=== PATIENT | male | born 1935 | race Caucasian/White ===

== ENCOUNTER 2016-10-08 13:59 | Emergency (ER) | payer MEDICARE ==
[2010-09-25 18:28] VITALS: BMI 27.2
== END 2016-10-08 15:51 | disposition home or self-care (01) ==
LOC: D.ER 13:59
DX: R51 Headache (principal); S09.90XA Unspecified injury of head, initial encounter; W19.XXXA Unspecified fall, initial encounter; Y93.89 Activity, other specified; Y92.019 Unspecified place in single-family (private) house as the place of occurrence of the external cause; Z79.01 Long term (current) use of anticoagulants; E11.9 Type 2 diabetes mellitus without complications; Z79.4 Long term (current) use of insulin

== ENCOUNTER 2017-03-18 17:34 | Inpatient (IN) | payer MEDICARE ==
[2017-03-18 19:01] LABS: BASOPHILS 0.2 % (0-2); EOSINOPHILS 0.5 % (0-7); HEMATOCRIT 32.1 % (42.0-54.0); HEMOGLOBIN 10.7 g/dL (13.5-17.5); IMMATURE GRANULOCYTES 0.8 % (0-5); MCH 28.6 pg (26.0-34.0); MCHC 33.3 g/dL (31.0-37.0); MCV 85.8 fL (80.0-100.0); MEAN PLATELET VOLUME 11.2 fL (7.4-10.4); MONOCYTES 11.6 % (2-11); NEUTROPHILS 80.9 % (40-80); PLATELET COUNT 140 10x3/uL (130-400); RBC 3.74 10x6/uL (4.20-6.10); RDW 14.6 % (11.5-14.5); WBC 11.3 10x3/uL (4.8-10.8)
[2017-03-18 19:19] LABS: ALBUMIN 3.6 g/dL (3.4-5.0); ALKALINE PHOSPHATASE 84 U/L (46-116); ALT (SGPT) 88 U/L (10-68); BILIRUBIN - TOTAL 1.08 mg/dL (0.2-1.3); CALC OSMOLALITY 284 mosm/kg (275-300); CALCIUM 8.5 mg/dL (8.5-10.1); CARBON DIOXIDE 26.4 mmol/L (21.0-32.0); CHLORIDE - SERUM 103 mmol/L (98-107); CREATININE - SERUM 1.4 mg/dL (0.6-1.3); GLUCOSE 108 mg/dL (74-106); POTASSIUM - SERUM 3.5 mmol/L (3.5-5.1); PROTEIN - SERUM 6.3 g/dL (6.4-8.2); SODIUM 137 mmol/L (136-145); UREA NITROGEN 41 mg/dL (7-18); eGFR NON AFRICAN AMERICAN 52 mL/min (90-120)
[2017-03-18 19:44] LABS: CREATINE KINASE 310 UL (21-232); TROPONIN-I 0.032 ng/mL (0.000-0.060)
[2017-03-18 20:11] LABS: PRO BNP 5767 pg/mL (0-450)
[2017-03-18 20:32] LABS: CKMB 8.3 U/L (0.0-3.6)
[2017-03-18 21:48] LABS: TROPONIN-I 0.017 ng/mL (0.000-0.060)
--- NOTE | 2017-03-19 00:44 | NUR ---
PT ENTERED FLOOR AT THIS TIME. PT IS VERY LETHARGIC AND SLOW TO RESPOND. WILL CONTINUE TO MONITOR
[2017-03-19 01:53] VITALS: BP 169/113
--- NOTE | 2017-03-19 02:21 | NUR ---
PT LYING IN BED, EYES CLOSED, RESPIRATIONS EVEN, MILDLY LABORED. PT IS UNROUSABLE AT THIS TIME. PT WAS D/C FROM THE [facility] 03/17/17 R/T FALLING AT HOME, HITTING HIS HEAD AND INJURING HIS RLE. PHYSICAL ADMISSION ASSESSMENT IS LIMITED AT THIS TIME R/T PT BEING UNRESPONSIVE. WILL CONTINUE TO MONITOR PT CLOSELY AND FREQUENTLY. BED LOW, CALL LIGHT IN REACH, SIDE RAILS X 2, HOB 20 DEGREES, BED ALARM ON. BEDSCALE DOES NOT WORK AT THIS TIME.
[2017-03-19 03:00] LABS: BASOPHILS 0.3 % (0-2); EOSINOPHILS 0.8 % (0-7); HEMATOCRIT 32.6 % (42.0-54.0); HEMOGLOBIN 10.6 g/dL (13.5-17.5); LYMPHOCYTES 8.5 % (15-50); MCH 27.7 pg (26.0-34.0); MCHC 32.5 g/dL (31.0-37.0); MCV 85.3 fL (80.0-100.0); MEAN PLATELET VOLUME 10.6 fL (7.4-10.4); MONOCYTES 10.8 % (2-11); NEUTROPHILS 78.6 % (40-80); PLATELET COUNT 135 10x3/uL (130-400); RBC 3.82 10x6/uL (4.20-6.10); RDW 14.6 % (11.5-14.5)
[2017-03-19 03:25] LABS: CALC OSMOLALITY 291 mosm/kg (275-300); CALCIUM 8.7 mg/dL (8.5-10.1); CARBON DIOXIDE 30.3 mmol/L (21.0-32.0); CHLORIDE - SERUM 104 mmol/L (98-107); CKMB 6.7 U/L (0.0-3.6); CREATININE - SERUM 1.4 mg/dL (0.6-1.3); GLUCOSE 98 mg/dL (74-106); POTASSIUM - SERUM 3.2 mmol/L (3.5-5.1); SODIUM 142 mmol/L (136-145); TROPONIN-I 0.027 ng/mL (0.000-0.060); UREA NITROGEN 39 mg/dL (7-18); eGFR NON AFRICAN AMERICAN 52 mL/min (90-120)
[2017-03-19 03:26] LABS: CREATINE KINASE 524 UL (21-232)
--- NOTE | 2017-03-19 07:56 | NUR ---
AM ROUNDS - PT IS IN BED AND ASLEEP AT THIS TIME. MONITOR SHOWING CAF, HR 109. BARNETT DRAINING. PT IS ON 2L O2 VIA NC. IV TO RIGHT WRIST, SL. BED AT LOWEST POSITION. CALL KIRK IN USE/REACH. SIDE RAILS UP X2. WILL COTNINUE TO MONITOR
[2017-03-19 08:15] VITALS: BP 140/94
[2017-03-19 09:38] LABS: CKMB 4.3 U/L (0.0-3.6); CREATINE KINASE 156 UL (21-232); TROPONIN-I 0.024 ng/mL (0.000-0.060)
--- NOTE | 2017-03-19 11:04 | NUR ---
[facility] IS A [facility]. SPOKE WITH PATIENT ABOUT [facility]. HE STATED THAT HE JUST SPENT 9 DAYS THERE AND THEY DISCHARGED HIM AFTER CUTTING HIS LASIX OFF COMPLETELY. HE STATED THAT HE HAD DEVELOPED SOB BEFORE THEY EVEN SENT HIM HOME AND THEY TOLD HIM THERE WAS NOTHING ELSE THEY COULD DO FOR HIM AND HIS SON AND [id number] BROUGHT HIM HERE. HE STATED THAT HE DOES NOT WANT TO GO BACK TO THE [facility]. EXPLAINED THAT BY REFUSING WE WOULD HAVE TO BILL HIS HUMANA, THAT THE [facility] WOULD NOT PAY THE BILL. HE STATED HIS UNDERSTANDING AND SAID THAT WAS FINE. CALL WAS PLACED TO THE BILLING OFFICE AND THIS WAS EXPLAINED TO BOTH GURINDER AND AMY.
[2017-03-19 12:04] VITALS: BP 140/86
[2017-03-19 14:03] VITALS: BMI 29.9
[2017-03-19] MEDS ORDERED: ACETAMINOPHEN325 MG PO (14:42)
[2017-03-19] MEDS ORDERED: BAYER CHEWABLE81 MG PO (14:43)
[2017-03-19] MEDS ORDERED: OPTIVE SENSITI1 EACH EACH EYE (14:44)
[2017-03-19] MEDS ORDERED: VITAMIN D2000 UNIT PO (14:44)
[2017-03-19] MEDS ORDERED: LEXAPRO10 MG PO (14:44)
[2017-03-19] MEDS ORDERED: PROSCAR5 MG PO (14:45)
[2017-03-19] MEDS ORDERED: EUCERIN CREAM120 GM TOPICAL (14:46)
[2017-03-19] MEDS ORDERED: ENULOSE10 G/15 ML PO (14:47)
[2017-03-19] MEDS ORDERED: PRINIVIL20 MG PO (14:48)
[2017-03-19] MEDS ORDERED: ATIVAN0.5 MG PO (14:49)
[2017-03-19] MEDS ORDERED: OMEPRAZOLE20 M1 PO (14:49)
[2017-03-19] MEDS ORDERED: METOPROLOL TAR100 M1 PO (14:49)
[2017-03-19] MEDS ORDERED: MEPHYTON5 MG PO (14:50)
[2017-03-19] MEDS ORDERED: GAVILAX510 GM PO (14:51)
[2017-03-19] MEDS ORDERED: LYRICA150 MG PO (14:52)
[2017-03-19] MEDS ORDERED: CRESTOR20 MG PO (14:53)
[2017-03-19] MEDS ORDERED: COUMADIN5 MG PO (14:54)
[2017-03-19] MEDS ORDERED: GAS-X80 MG PO (14:54)
[2017-03-19] MEDS ORDERED: COUMADIN2.5 MG PO (14:55)
--- NOTE | 2017-03-19 15:31 | NUR ---
NYSTOP POWER NOT AVAILABLE. PHARMACY NOTIFIED. WAITING ON MEDICATION
--- NOTE | 2017-03-19 15:32 | NUR ---
SCD PLACED ON PT. WILL CONTINUE TO MONITOR
[2017-03-19] MEDS ORDERED: LANTUS SOL100 UNIT/1 SC (16:35)
[2017-03-19 16:54] VITALS: BP 126/79
[2017-03-19 16:58] LABS: INR 2.5 (0.85-1.17); PROTIME 27.1 SECONDS (11.6-15.0)
--- NOTE | 2017-03-19 17:05 | NUR ---
PT CURRENTLY RUNNING 129 UNCONTROLLED A.FIB. CARDIZEM DRIP ORDERED AND INTIATED VIA R.WRIST PIV WITH DRSG CDI AND SWAB CAPS IN USE. DRIP INFUSING @10ML/HR, TEACHING PROVIDED TO PT AND CAREGIVER AT BEDSIDE IT IS A NEW MEDICATION. CL IN REACH, BED IN LOWEST, SIDE RAILS X2. NO FURTHER NEEDS AT THIS TIME. WILL CPOC.
[2017-03-19 17:22] LABS: % SATURATION 12 % (15-55); IRON 33 ug/dl (35-150); TOTAL IRON BIND CAPACITY 274 ug/dl (260-445); UNSAT IRON BIND CAPACITY 241 ug/dl (150-375)
--- NOTE | 2017-03-19 18:29 | NUR ---
PT IN BED WITH FAMILY AT BEDSIDE. WILL CONTINUE TO MONITOR
[2017-03-19 19:00] VITALS: BP 121/76
--- NOTE | 2017-03-19 19:36 | NUR ---
ASSESSMENT COMPLETE, A&O. IV TO RIGHT WRIST WITH CARDIZEM AT 10 CC/HR. SITE CLEAN AND DRY. BARNETT DRAINING TO GRAVITY. SCDS ON LOWER EXTREMITIES. PT DENIES NEEDS AT THIS TIME, BED LOW, CL IN REACH.
[2017-03-19] MEDS ORDERED: TYLENOL W/CODEI1 TAB PO (20:44)
[2017-03-20] VITALS (9 sets, daily range): BP systolic 93–128; BP diastolic 52–67
--- NOTE | 2017-03-20 00:55 | NUR ---
TALENT PARTNER AT BEDSIDE TO OBTAIN VITALS, CALL LIGHT IN REACH. WILL CONTINUE WITH PLAN OF CARE.
[2017-03-20 05:04] LABS: BASOPHILS 0.2 % (0-2); EOSINOPHILS 0.8 % (0-7); HEMATOCRIT 33.1 % (42.0-54.0); HEMOGLOBIN 10.8 g/dL (13.5-17.5); LYMPHOCYTES 8.1 % (15-50); MCH 28.3 pg (26.0-34.0); MCHC 32.6 g/dL (31.0-37.0); MCV 86.6 fL (80.0-100.0); MEAN PLATELET VOLUME 10.9 fL (7.4-10.4); MONOCYTES 12.8 % (2-11); NEUTROPHILS 77.1 % (40-80); RBC 3.82 10x6/uL (4.20-6.10); RDW 14.5 % (11.5-14.5)
--- NOTE | 2017-03-20 05:09 | NUR ---
RESTING WITH EYES CLOSED, RESPERATIONS EVEN, NO S/S DISTRESS NOTED.
[2017-03-20 05:27] LABS: INR 2.22 (0.85-1.17); PROTIME 24.7 SECONDS (11.6-15.0)
[2017-03-20 05:33] LABS: ALBUMIN 3.3 g/dL (3.4-5.0); ANION GAP 9.5 mmol/L (8-16); BILIRUBIN - TOTAL 0.9 mg/dL (0.2-1.3); CALCIUM 8.5 mg/dL (8.5-10.1); CARBON DIOXIDE 32.9 mmol/L (21.0-32.0); POTASSIUM - SERUM 3.4 mmol/L (3.5-5.1); PROTEIN - SERUM 6.2 g/dL (6.4-8.2)
[2017-03-20 05:35] LABS: PLATELET COUNT 166 10x3/uL (130-400); WBC 10.5 10x3/uL (4.8-10.8)
[2017-03-20 05:52] LABS: CREATININE - SERUM 1.9 mg/dL (0.6-1.3)
--- NOTE | 2017-03-20 15:03 | NUR ---
1030- HUMIDIFIED O2 PLACED ON PT DUE TO PT STATING HE FEELS LIKE HIS NOSE IS GOING TO BLEED. PT IS ON 02 AT 2L VIA NC.
--- NOTE | 2017-03-20 16:35 | NUR ---
FAVIOLA AKERS IS GETTING ORTHOSTATIC BLOOD PRESSURES DIRECTED IN NURSING MESSAGE.
--- NOTE | 2017-03-20 18:41 | NUR ---
PT IS CURRENTLY SITTING UP IN BED WITH EYES OPEN RESTING. I INFORMED PT THAT PARIS CORDERO NP ORDERED A MEDICATION TO HELP PT SLEEP REQUESTED. WILL PASS THIS ALONG IN REPORT TO FRONT MAKER NURSE. WILL CONTINUE TO MONITOR.
--- NOTE | 2017-03-20 19:22 | NUR ---
PT RESTING IN BED. 2.5L O2 NC. PT STATES PAIN IS ABOUT 4/10. IN RIGHT LEG. PT WATCHING FOOTBALL. TALKING ABOUT HIS PAST JOBS. PT DENIES ANY NEEDS. NO S/S OF DISTRESS. WILL CPOC
[2017-03-21] VITALS (7 sets, daily range): BP systolic 109–127; BP diastolic 67–93
[2017-03-21 05:55] LABS: BASOPHILS 0.5 % (0-2); EOSINOPHILS 2.5 % (0-7); HEMOGLOBIN 10.5 g/dL (13.5-17.5); LYMPHOCYTES 11.6 % (15-50); MCH 28.1 pg (26.0-34.0); MCHC 31.8 g/dL (31.0-37.0); MCV 88.2 fL (80.0-100.0); MEAN PLATELET VOLUME 10.5 fL (7.4-10.4); MONOCYTES 8.6 % (2-11); NEUTROPHILS 75.8 % (40-80); PLATELET COUNT 155 10x3/uL (130-400); RBC 3.74 10x6/uL (4.20-6.10); RDW 14.7 % (11.5-14.5); WBC 8.1 10x3/uL (4.8-10.8)
[2017-03-21 06:07] LABS: INR 2.26 (0.85-1.17)
[2017-03-21 06:20] LABS: ALBUMIN 3.1 g/dL (3.4-5.0); ANION GAP 8.7 mmol/L (8-16); BILIRUBIN - TOTAL 0.7 mg/dL (0.2-1.3); CALCIUM 8.2 mg/dL (8.5-10.1); CREATININE - SERUM 1.8 mg/dL (0.6-1.3); POTASSIUM - SERUM 3.7 mmol/L (3.5-5.1); PROTEIN - SERUM 6.1 g/dL (6.4-8.2)
--- NOTE | 2017-03-21 08:04 | NUR ---
AM ROUNDING- RECIEVED REPORT FROM RECYCLING COLLECTIONS DRIVER NURSE AKIRA. PT IS CURRENTLY SITTING UP IN BED WITH EYES OPEN RESTING. ON 02 AT 2L VIA HUMIDIFIED O2. ON MONITOR SHOWING A-FLUTTER, HR 100. IV SEEN TO RIGHT WRIST THAT IS CURRENTLY SALINE LOCKED. BARNETT CATHETER SEEN. NO NEED AT THIS CURRENT TIME. BED IS IN LOW POSITION, SIDE RAILS ARE UP X2, AND CALL LIGHT IS IN REACH. WILL CONTINUE TO MONITOR AND CONTINUE WITH PLAN OF CARE.
--- NOTE | 2017-03-21 12:00 | NUR ---
Nutrition Follow Up: Pt is eating 90% meal avg on a [facility] soft diabetic diet with nectar thick liquids. Wt stable. No BM since admit. Labs reviewed - Glucose elevated. Meds noted including Lasix. Rec continue current diet. RD following.
--- NOTE | 2017-03-21 17:07 | NUR ---
PARIS CORDERO NP ON UNIT. INFORMED HER THAT PT NEEDS A SUPPOSITORY FOR CONSTIPATION AND THAT I JUST GAVE PT MIRLAX. NEW ORDERS RECIEVED.
[2017-03-21 17:37] LABS: HEMOGLOBIN A1C 7.6 % (4.8-6.0)
--- NOTE | 2017-03-21 18:34 | NUR ---
PT GIVEN SUPPOSITORY ORDERED. PT INSTRUCTED TO HOLD SUPPOSITORY IN LONG HE CAN. NO FURTHER NEED AT THIS TIME. CALL LIGHT IS IN REACH. WILL CONTINUE TO MONITOR.
--- NOTE | 2017-03-21 19:40 | NUR ---
PT ON PHONE. NAME AND DATE PLACED ON BOARD. STATES "HE WANTS A SLEEPING PILL TONIGHT. NOT RIGHT NOW IN A COUPLE HOURS WHEN I BRING MEDS" PT ALSO ASKS ME TO BRING A PAIN PILL FOR PAIN 4/10 IN RIGHT LEG. PT IS ON 2L O2 NC WITH HUMIDITY, IV RIGHT WRIST. PT DENIES ANY NEEDS. NO S/S OF DISTRESS. WILL CPOC
--- NOTE | 2017-03-21 22:39 | NUR ---
PT ASLEEP IN BED. RESPIRATIONS EVEN AND UNLABORED. . O2 WAS PUSHED OUT OF NOSE ONTO FOREHEAD. WOKE PT UP. HE STATED HE FORGOT HE TOOK IT OUT HE WAS GETTING A SCAB OUT OF NOSE. PT AROUSED TO VOICE. PT NIKOLAI. PT RECEIVING PAIN PILL AND SCHEDULED PAIN PILL REQUESTED. ALSO GIVING GRAMCRACKERS, CUP OF ICE, AND MOUTH MOISTURIZER TO PT REQUESTED. PT DENIES ANY OTHER NEEDS. NO S/S OF DISTRESS. WILL CPOC
[2017-03-22] VITALS: BP 91/57
--- NOTE | 2017-03-22 | NUR ---
PT UP TO RESTROOM X1 ASSIST. STAT LOCK FOR FOLLEY IS NOT INTACT. REMOVED AND REPLACED STAT LOCK TO RIGHT INNER THIGH NOW CDI. PT DENIES ANY OTHER NEEDS. WILL CPOC
[2017-03-22 04:00] VITALS: BP 107/62
[2017-03-22 05:41] LABS: BASOPHILS 0.4 % (0-2); EOSINOPHILS 2.1 % (0-7); HEMATOCRIT 31.8 % (42.0-54.0); IMMATURE GRANULOCYTES 1.1 % (0-5); MCH 27.7 pg (26.0-34.0); MCHC 31.4 g/dL (31.0-37.0); MCV 88.1 fL (80.0-100.0); MEAN PLATELET VOLUME 11.1 fL (7.4-10.4); MONOCYTES 8.2 % (2-11); NEUTROPHILS 76.2 % (40-80); PLATELET COUNT 156 10x3/uL (130-400); RBC 3.61 10x6/uL (4.20-6.10); RDW 14.4 % (11.5-14.5); WBC 8.5 10x3/uL (4.8-10.8)
[2017-03-22 06:00] LABS: ALBUMIN 2.8 g/dL (3.4-5.0); ANION GAP 10.1 mmol/L (8-16); BILIRUBIN - TOTAL 0.59 mg/dL (0.2-1.3); CARBON DIOXIDE 32.7 mmol/L (21.0-32.0); CREATININE - SERUM 1.8 mg/dL (0.6-1.3); POTASSIUM - SERUM 3.8 mmol/L (3.5-5.1)
[2017-03-22 06:18] LABS: PROTIME 30.9 SECONDS (11.6-15.0)
[2017-03-22 06:19] LABS: INR 2.94 (0.85-1.17)
--- NOTE | 2017-03-22 06:52 | NUR ---
PT ASLEEP. LAYING ON LEFT SIDE. RESPIRATIONS EVEN AND UNLABORED. WILL CPOC
--- NOTE | 2017-03-22 08:00 | NUR ---
AM ROUNDS COMPLETED. PT A&O SITTING UP IN BED RESTING QUIETLY. SHIFT ASSESSMENT COMPLETED. RR NONLABORED WITH NC @2L IN PLACE. PT HAS A R.WRIST PIV WITH DRSG CDI AND SWAB CAPS IN USE. PT HAS BARNETT IN PLACE DRAINING TO GRAVITY OFF L.SIDE OF BED CLEAR YELLOW URINE WITH STAT LOCK IN PLACE SECURED TO L.INNER THIGH. PT REFUSES SCDS R/T HIS PVD AND STATES HIS FEET HURT. R.CALF HAS A SMALL HEMATOMA NOTED FROM HIS FALL AT HOME. PT DENIES ANY CURRENT NEEDS AT THIS TIME. CL IN REACH, BED IN LOWEST, SIDE RAILS X2. WILL CPOC.
[2017-03-22 08:45] VITALS: BP 131/81
--- NOTE | 2017-03-22 10:29 | NUR ---
PT PIV INFILTRATED DC WITH CATH TIP INTACT. RESITED TO LEFT WRIST 20 G X2 STICKS.
--- NOTE | 2017-03-22 12:09 | NUR ---
FSBS 332 PT REC'D 8 UNITS PER SS INSULIN. PTS COLOR IS PALE IN HIS FACE AND HES VERY LETHARGIC. VSS AND TELEMETRY RUNNING 110 FLUTTER. STAT EKG DONE AND REVEALS THE SAME. PTS BUILD TECHNICIAN ARE EQUAL AND STRONG. PERRLA INTACT. PT IS JUST REMARKEDLY TIRED/DIFFERENT FROM EARLIER THIS AM. PT IS ORIENTED X4 BUT HIS SPEECH IS SLURRED SLIGHT DROOP NOTED TO LEFT SIDE UPON SMILING ASSESSMENT PT UNABLE TO STICK TONGUE OUT AND KEEPS FALLING BACK ASLEEP. WILL NOTIFY PRIMARY STAT.
[2017-03-22 12:40] VITALS: BP 136/84
--- NOTE | 2017-03-22 14:00 | NUR ---
PT WENT AND HAD CT DONE AND NOW IS ACTING NORMAL AT HIS BASELINE STAYING AWAKE AND NOT ACTING LETHARGIC. PT STATES "I FEEL FINE I WAS JUST PRETTY TIRED" PT DENIES ANY CURRENT NEEDS. WILL CTM.
--- NOTE | 2017-03-22 16:11 | NUR ---
FSBS 231. PT REC'D 4 UNITS PER SS INSULIN. PT SITTING UP IN BED WATCHING TV WAITING ON DINNER. PT DENIES ANY CURRENT PAIN OR NEEDS AT THIS TIME. CL IN REACH, BED IN LOWEST, SIDE RAILS X2. WILL CPOC.
[2017-03-22 16:24] VITALS: BP 109/55
--- NOTE | 2017-03-22 19:24 | NUR ---
RECEIVED REPORT, WILL ASSUME CARE OF PT, PT RECEIVING BREATHING TREATMENT, DENIES ANY NEEDS, BED IS LOW, SRX2, CALL LIGHT IN REACH, WILL CONTINUE PLAN OF CARE
[2017-03-22 20:00] VITALS: BP 108/71
--- NOTE | 2017-03-22 21:12 | NUR ---
[id number] 6UNITS OF HUMALOG, PT WANTS TO WAIT TO TAKE DESERYL UNTIL LATER
--- NOTE | 2017-03-22 22:16 | NUR ---
ASSISTED PT TO RESTROOM, PT REFUSED TO PUT SOCKS ON
--- NOTE | 2017-03-22 22:40 | NUR ---
PT COMPLAINS OF LEG PAIN, ASKING FOR TYLENOL-CODIENE
[2017-03-23] VITALS: BP 126/77
[2017-03-23 02:08] VITALS: BP 125/65
--- NOTE | 2017-03-23 03:22 | NUR ---
ASSESSMENT COMPLETE, SEE FLOWSHEET, PT SLEEPING, BED IS LOW, SRX2, CALL LIGHT IN REACH, WILL CONTINUE PLAN OF CARE
[2017-03-23 04:00] VITALS: BP 136/70
--- NOTE | 2017-03-23 05:36 | NUR ---
PT HAS DONE WELL THIS NIGHT. HE TOOK HIS TRAMMADOL LATE AT HIS REQUEST. REFUSED TO WEAR NON SLIP SOCKS WHEN UP TO BATHROOM. STAFF ASSISTED AT ALL TIMES.
--- NOTE | 2017-03-23 06:32 | NUR ---
[id number] 2 UNITS OF HUMALOG
[2017-03-23 06:44] LABS: BASOPHILS 0.1 % (0-2); EOSINOPHILS 1.9 % (0-7); HEMATOCRIT 33.8 % (42.0-54.0); HEMOGLOBIN 10.7 g/dL (13.5-17.5); IMMATURE GRANULOCYTES 0.9 % (0-5); LYMPHOCYTES 11.8 % (15-50); MCH 27.7 pg (26.0-34.0); MCHC 31.7 g/dL (31.0-37.0); MCV 87.6 fL (80.0-100.0); MEAN PLATELET VOLUME 11.6 fL (7.4-10.4); MONOCYTES 7.9 % (2-11); NEUTROPHILS 77.4 % (40-80); PLATELET COUNT 176 10x3/uL (130-400); RBC 3.86 10x6/uL (4.20-6.10); RDW 14.3 % (11.5-14.5); WBC 7.7 10x3/uL (4.8-10.8)
[2017-03-23 06:56] LABS: PROTIME 25.5 SECONDS (11.6-15.0)
[2017-03-23 06:57] LABS: INR 2.31 (0.85-1.17)
[2017-03-23 07:16] LABS: ANION GAP 11.4 mmol/L (8-16); BILIRUBIN - TOTAL 0.71 mg/dL (0.2-1.3); CALCIUM 8.4 mg/dL (8.5-10.1); CARBON DIOXIDE 32.2 mmol/L (21.0-32.0); CREATININE - SERUM 1.6 mg/dL (0.6-1.3); POTASSIUM - SERUM 3.6 mmol/L (3.5-5.1); PROTEIN - SERUM 6.3 g/dL (6.4-8.2)
[2017-03-23 08:00] VITALS: BP 143/70
--- NOTE | 2017-03-23 08:00 | NUR ---
AM ROUNDS COMPLETED. INTRODUCED MYSELF TO PT PRIMARY RN FOR TODAYS SHIFT. PT A&O SITTING UP IN BED RESTING QUIETLY. SHIFT ASSESSMENT COMPLETED AND NO CHANGES SINCE YESTERDAYS ASSESSMENT ON MY SHIFT. PTS L.WRIST PIV IS PATENT WITH DRSG CDI AND SWAB CAPS IN USE. TELEMTRY IN PLACE RUNNING ATRIAL FLUTTER AT 118, WILL DISCUSS WITH CARDIOLOGY TODAY ABOUT UPPING PTS BETAPACE TO BE MORE EFFECTIVE. PTS BILAT LE UNCHANGED BUT I APPLIED ALOE SPRAY MOISTURE TO HELP KEEP THEM MOISTURIZED. BARNETT DRAINING CLEAR YELLOW URINE TO GRAVITY OFF R.SIDE OF BED. STAT LOCK SECURED TO INNER THIGH. NO FURTHER NEEDS AT THIS TIME. CL IN REACH, BED IN LOWEST, SIDE RAILS X2. WILL CPOC.
[2017-03-23 11:00] VITALS: BP 140/67
--- NOTE | 2017-03-23 12:12 | NUR ---
FSBS 312 PT REC'D 8 UNITS OF INSULIN PER SS. PT C/O DIETARY NOT CHOPPING UP HIS MEAT ENOUGH. PT IS ENDENTULOUS AND NEEDS CONSISTENCY OF A HASH, WILL CALL AND ORDER PT NEW TRAY FROM DIETARY. PT REC'D MIRALAX THIS AM FOR CONSTIPATION AND STILL HASNT WENT, ABDOMEN STILL DISTENDED AND TIGHT, WILL ASK DOCTOR FOR ADDITIONAL PRN MED IF HE STILL CANT GO. PT VOICED THANKS AND DENIES ANY FURTHER NEEDS AT THIS TIME. CL IN REACH, BED IN LOWEST, SIDE RAILS X2. WILL CPOC.
--- NOTE | 2017-03-23 14:00 | NUR ---
PT UP AMBULATING HALLS WITH PHYSICAL THERAPY PT DENIES BEING SOB OR WEAK AND STATES "IT FEELS GOOD TO BE OOB" PT DENIES ANY CURRENT NEEDS. WILL CPOC.
[2017-03-23 15:04] VITALS: BP 146/71
--- NOTE | 2017-03-23 16:46 | NUR ---
FSBS 207 PT REC'D 4 UNITS PER SS INSULIN. PT STILL HASNT HAD BM TODAY AND ABD VERY TIGHT AND DISTENDED PT STATES HE HAS BEEN PASSING LOTS OF GAS. PROVIDED PT WITH HIS MIRALAX THAT IS NOW SCHEDULED LIKE HE DOES AT HOME MIXED IN PRUNE JUICE AND PT STATES IT SHOULD HELP. PT DENIES ANY CURRENT PAIN OR NEEDS AT THIS TIME AND IS WATCHING TV WAITING ON DINNER. CL IN REACH. WILL CPOC.
--- NOTE | 2017-03-23 18:49 | NUR ---
PT CALLED FOR ASSISTANCE TO BR AND HAD VERY LARGE SOFT BROWN FORMED BOWEL MOVEMENT AND STATES MUCH RELIEF. EMTPIED BARNETT OF 1500ML OF CLEAR YELLOW URINE. ASSISTED PT BACK INTO BED. PT DENIES ANY FURTHER NEEDS AT THIS TIME. CL IN REACH. WILL CPOC.
--- NOTE | 2017-03-23 19:44 | NUR ---
RECEIVED REPORT, WILL ASSUME CARE OF PT, TALKING ON PHONE, DENIES ANY NEEDS,BED IS LOW, SRX2, CALL LIGHT IN REACH, WILL CONTINUE PLAN OF CARE
--- NOTE | 2017-03-23 21:15 | NUR ---
PT WANTS TO WAIT UNTIL LATER TO TAKE DESERYL
[2017-03-24] VITALS: BP 91/58
--- NOTE | 2017-03-24 00:45 | NUR ---
PT WANTS TRAZODONE NOW, WAS DUE AT 2100
--- NOTE | 2017-03-24 03:29 | NUR ---
ASSESSMENT COMPLETE, SEE FLOWSHEET, PT SLEEPING, BED IS LOW, SRX2, CALL LIGHT IN REACH, WILL CONTINUE PLAN OF CARE
[2017-03-24 04:00] VITALS: BP 115/62
[2017-03-24 05:43] LABS: BASOPHILS 0.1 % (0-2); HEMATOCRIT 31.6 % (42.0-54.0); IMMATURE GRANULOCYTES 1.3 % (0-5); LYMPHOCYTES 15.6 % (15-50); MCH 27.4 pg (26.0-34.0); MCHC 31.6 g/dL (31.0-37.0); MCV 86.6 fL (80.0-100.0); MONOCYTES 8.1 % (2-11); NEUTROPHILS 72.9 % (40-80); PLATELET COUNT 165 10x3/uL (130-400); RBC 3.65 10x6/uL (4.20-6.10); WBC 7.5 10x3/uL (4.8-10.8)
[2017-03-24 05:59] LABS: INR 2.25 (0.85-1.17); PROTIME 24.9 SECONDS (11.6-15.0)
[2017-03-24 06:14] LABS: ALBUMIN 2.9 g/dL (3.4-5.0); ANION GAP 11.5 mmol/L (8-16); BILIRUBIN - TOTAL 0.6 mg/dL (0.2-1.3); CARBON DIOXIDE 30.5 mmol/L (21.0-32.0); CREATININE - SERUM 1.8 mg/dL (0.6-1.3); PROTEIN - SERUM 5.8 g/dL (6.4-8.2)
[2017-03-24 06:38] LABS: CALCIUM 8.2 mg/dL (8.5-10.1)
[2017-03-24 08:00] VITALS: BP 109/65
--- NOTE | 2017-03-24 08:33 | NUR ---
AM ROUNDS COMPLETED. SHIFT ASSESSMENT DONE. NO CHANGES FROM YESTERDAY. PT IS A&O SITTING UP IN BED EATING BREAKFAST AND TAKING MORNING MEDS. ABDOMEN STILL DISTENDED AND TIGHT BUT PT IS NOW ON HOME REGIMEN OF MIRALAX AND STATES HE CAN FEEL IT WORKING. CURRENTLY WORKING ON GET PT SOME REHAB PT AMBULATED VERY WELL YESTERDAY WITH THERAPY AND IS MOTIVATED TO CONTINUE. PT WILL HAVE BARNETT REMOVED TODAY THERE IS NO FURTHER REASON FOR IT. WILL PROVIDED PT WITH URINAL. PT DENIES ANY CURRENT PAIN OR NEEDS AT THIS TIME. CL IN REACH. WILL CPOC.
--- NOTE | 2017-03-24 11:58 | NUR ---
Rehab Note- Acute Rehab Prescreen order received. The patient has [employer] insurance and will need a PreAuth prior to an acute rehab stay. Has an OT Eval ordered, will need for PreAuth also. Will begin PreAuth process. Thank you for this referral! Kat San RN Clinical Liaison, [facility] Rehab
[2017-03-24 12:00] VITALS: BP 106/53
--- NOTE | 2017-03-24 12:30 | NUR ---
FSBS 277 PT REC'D INSULIN PER SS. PT SITTING UP IN BED EATING LUNCH. PT DENIES ANY CURRENT PAIN OR NEEDS AT THIS TIME. WAITING ON REHAB CONSULT. CL IN REACH. WILL CPOC.
--- NOTE | 2017-03-24 12:59 | NUR ---
Nutrition Follow Up: Pt is eating 92% meal avg on a diabetic [facility] soft diet with nectar thick liquids. Wt gain noted. +BM 03/23/17. Labs reviewed - Glucose elevated. Meds noted including Lasix. Rec continue diabetic diet with PIPE CONNECTOR recs for consistencies. RD following.
--- NOTE | 2017-03-24 15:50 | NUR ---
EKG REVIEWED WITH , WILL CONTINUE PT ON CURRENT BETA MOUNA DOSE AND THERAPY AND CTM.
[2017-03-24 16:02] VITALS: BP 136/86
--- NOTE | 2017-03-24 16:41 | NUR ---
BARNETT CATHETER D/C ORDERED. BULB COMPLETELY INTACT, PT HAD SLIGHT DISCOMFORT BUT STATES IT FEELS BETTER NOW. FSBS 230 PT REC'D 4 UNITS PER SS INSULIN. PT SITTING UP IN BED TALKING WITH FAMILY NOW AND DENIES ANY FURTHER NEEDS AT THIS TIME. CL IN REACH, BED IN LOWEST, SIDE RAILS X2 AND URINAL AT BEDSIDE. WILL CPOC.
--- NOTE | 2017-03-24 17:32 | NUR ---
Patient Name: AMANDA MEJIA Admission Status: ER Accout number: [id number] Admission Date: 03-19-2017 : 1935 Admission Diagnosis:SHORTNESS OF BREATH Attending: CRISTINA Current LOS: 5 Anticipated DC Date: 03-25-2017 Planned Disposition: Inpatient Rehab Primary Insurance: [employer] CHOICE PPO MCR ADVANT PLANNED EXTERNAL PROVIDER: [facility] INPATIENT REHAB Discharge Planning Comments: * Is the patient Alert and Oriented? Yes 0 * How many steps to enter\\exit or inside your home? NONE 0 * PCP [facility] REPORTS HAVING SEEN DR. MARTINEZ IN THE PAST 0 * [facility] 0 * Preadmission Environment Home Alone 0 * ADLs Independent 0 * Equipment Bedside Commode Cane Shower Chair Walker Wheelchair 0 * Other Equipment [facility] - MEDICAL EQUIPMENT PROVIDER 0 * List name and contact numbers for known caregivers / representatives who currently or will assist patient after discharge: KARLA MEJIA, DAUGHTER IN LAW, 0 * Community resources currently utilized [facility] * Please name any agencies selected above. [facility] 1X MONTHLY - COMPANY NAME UNKNOWN 0 * Additional services required to return to the preadmission environment? Yes * Can the patient safely return to the preadmission environment? Yes 0 * Has this patient been hospitalized within the prior 30 days at any hospital? Yes 0 CM RECEIVED ORDER FOR INPATIENT REHAB PRESCREENING, MET WITH PT IN ROOM TO DISCUSS DISCHARGE PLANNING AND NEEDS. PT REPORTS LIVING AT HOME INDEPENDENTLY AND ALONE. PT REPORTS HAVING ALL MEDICAL EQUIPMENT FROM THE [facility] AND [facility] NURSE ONE TIME MONTHLY TO ASK HIM IS HE IS OK AND GET A BLOOD SAMPLE. CM DISCUSSED AVAILABILITY OF HOME HEALTH, REHAB SERVICES AND MEDICAL EQUIPMENT. PT WOULD LIKE TO BE EVALUATED FOR REHAB AT [facility], DOES NOT WANT TO CONSIDER [facility] INPATIENT HE IS "THROUGH WITH THEM OVER THERE SINCE MY ." PT REPORTS IF HE NEEDS HELP AT HOME, HIS SON AND DAUGHTER IN LAW LIVE NEXT DOOR AND CHECK ON HIM FREQUENTLY. PT WILL NOT CONSIDER GOING TO ANY SNF FACILITY IF INPATIENT REHAB OR INSURANCE DENIES SERVICE. SNF CHOICE LISTING PROVIDED TO PATIENT WITH CM CONTACT INFORMATION. PT REPORTS FAMILY WILL PICK HIM UP FOR DISCHARGE HOME. IMPORTANT MESSAGE FROM MEDICARE PROVIDED AND EXPLAINED. CM WAITING ON INPATIENT REHAB PRESCREEN RESULTS WELL INSURANCE AUTHORIZATION / DENIAL. Program Officer: Aldo Tompkins
[2017-03-24 19:00] VITALS: BP 105/50
--- NOTE | 2017-03-24 20:02 | NUR ---
RECEIVED REPORT, WILL ASSUME CARE OF PT, PT WATCHING TV, DENIES ANY NEEDS AT THIS TIME, BED IS LOW, SRX2, CALL LIGHT IN REACH, WILL CONTINUE PLAN OF CARE
--- NOTE | 2017-03-24 21:08 | NUR ---
WANTS TO WAIT TO TAKE DESERYL, WILL CALL WHEN READY
[2017-03-25] VITALS: BP 95/53
[2017-03-25 04:00] VITALS: BP 115/73
--- NOTE | 2017-03-25 04:05 | NUR ---
ASSESSMENT COMPLETE, SEE FLOWSHEET, BED IS LOW, SRX2, CALL LIGHT IN REACH, WILL CONTINUE PLAN OF CARE
--- NOTE | 2017-03-25 04:27 | NUR ---
BILINGUAL STUDENT TUTOR AT BEDSIDE TO OBTAIN VITALS, CALL LIGHT IN REACH. WILL CONTINUE WITH PLAN OF CARE.
--- NOTE | 2017-03-25 07:00 | NUR ---
RECEIVED REPORT. ASSUMED CARE OF PATIENT. RESTING IN BED WITH EYES OPEN. RESP EVEN AND UNLABORED. RIGHT LOWER EXTREMITY WARM TO TOUCH WITH ELEVATED AREA TO MEDIAL ASPECT OF CALF. NO DISTRESS. CALLL LIGHT WITHIN REACH.
[2017-03-25 08:00] VITALS: BP 121/65
--- NOTE | 2017-03-25 09:35 | NUR ---
MEDICATED FOR PAIN AT THIS TIME. NO DISTRESS. PATIENT SITTING UP IN BED. CALL LIGHT WITHIN REACH.
--- NOTE | 2017-03-25 11:52 | NUR ---
FSBS 309. 8 UNITS HUMALOG ADMINISTERED PER SLIDING SCALE. NO DISTRESS.
[2017-03-25 12:03] VITALS: BP 100/62
[2017-03-25 14:48] LABS: BASOPHILS 0.4 % (0-2); EOSINOPHILS 3.5 % (0-7); HEMOGLOBIN 10.9 g/dL (13.5-17.5); IMMATURE GRANULOCYTES 1.8 % (0-5); LYMPHOCYTES 14.6 % (15-50); MCH 27.9 pg (26.0-34.0); MCHC 32.1 g/dL (31.0-37.0); MCV 87.2 fL (80.0-100.0); MEAN PLATELET VOLUME 10.9 fL (7.4-10.4); MONOCYTES 9.1 % (2-11); NEUTROPHILS 70.6 % (40-80); PLATELET COUNT 184 10x3/uL (130-400); RDW 14.3 % (11.5-14.5); WBC 7.8 10x3/uL (4.8-10.8)
--- NOTE | 2017-03-25 15:06 | NUR ---
MEDICATED FOR PAIN AT THIS TIME. NO DISTRESS./
[2017-03-25 15:44] LABS: ANION GAP 10.4 mmol/L (8-16); CALCIUM 8.1 mg/dL (8.5-10.1); CARBON DIOXIDE 29.9 mmol/L (21.0-32.0); CREATININE - SERUM 1.7 mg/dL (0.6-1.3); POTASSIUM - SERUM 4.3 mmol/L (3.5-5.1)
[2017-03-25 15:54] VITALS: BP 112/67
--- NOTE | 2017-03-25 16:40 | NUR ---
FSBS 260. 6 UNITS HUMALOG ADMINISTERED PER SLIDING SCALE. NO DISTRESS.
--- NOTE | 2017-03-25 17:00 | NUR ---
OT NOTE: PT COMPLETED ADL MOB WITH SBA. PT COMPLETED DYNAMIC BALANCE AXS WITH SBA/CGA. PT COMPLETED SIMPLE GROOMING TASK AT EOB WITH SBA. THANK YOU, MOISÉS ESTRADA/Mary Kay
--- NOTE | 2017-03-25 19:21 | NUR ---
RECEIVED REPORT, WILL ASSUME CARE OF PT, PT DENIES ANY NEEDS AT THIS TIME, BED IS LOW, SRX2, CALL LIGHT IN REACH, WILL CONTINUE PLAN OF CARE
[2017-03-25 20:09] VITALS: BP 99/57
--- NOTE | 2017-03-25 20:54 | NUR ---
WANTS TO WAIT TO TAKE TRAZODONE UNTIL LATER, WILL CALL WHEN READY
--- NOTE | 2017-03-25 23:00 | NUR ---
PT JUST ASK FOR TRAZODONE
[2017-03-26] VITALS: BP 122/61
--- NOTE | 2017-03-26 02:46 | NUR ---
ASSESSMENT COMPLETE, SEE FLOWSHEET, PT SLEEPING, REPLACED BATTERY IN TELEMTRY, BED IS LOW, SRX2, CALL LIGHT IN REACH, WILL CONTINUE PLAN OF CARE
[2017-03-26 04:00] VITALS: BP 104/74
--- NOTE | 2017-03-26 04:55 | NUR ---
PT ALERT AND ORIENTED, UP TO THE BATHROOM WITH ASSIST, NO NEEDS, CONTINUE TO MONITOR.
--- NOTE | 2017-03-26 07:20 | NUR ---
AM ROUNDS- PT UP TO SIDE OF BED, BEAR KEEPER AT BEDSIDE TO DO VITAL SIGNS. PT DENIES ANY NEEDS AT THIS TIME. RESP EVEN AND UNLABORED. LT WRIST IV SL. BED LOW AND WHEELS LOCKED, BEDSIDE RAILS X2, CALL LIGHT IN REACH, NAD NOTED, WILL CONTINUE TO MONITOR.
[2017-03-26 08:16] VITALS: BP 100/48
--- NOTE | 2017-03-26 08:46 | NUR ---
ADMINISTERED AM MEDS AND 650MG OF TYLENOL FOR PAIN LEVEL OF 10/10. PT IN BED,DENIES ANY NEEDS AT THIS TIME. CALL LIGHT IN REACH, NAD NOTED, WILL CONTINUE TO MONITOR.
--- NOTE | 2017-03-26 10:54 | NUR ---
PT HAD JUST RECENTLY BEEN SEEN BY PHYS THERAPY AND AMBULATED SEVERAL HUNDRED FEET. PT WAS IN BED BUT AGREED TO SEVERAL FUNCITONAL TASKS. BED MOB WITH SPV; ABLE TO AMB TO TOILET WITH SPV; ABLE TO STEP INTO SHOWER WITH SPV. MIN ASSIST TO TYLER/DOFF SOCKS.
[2017-03-26 11:45] VITALS: BP 113/67
--- NOTE | 2017-03-26 13:08 | NUR ---
PT AMBULATING WITH LOVELY PHYSICAL COTTAGE CHEESE MAKER. PT AMBULATED 1250FEET AT THIS TIME. NAD NOTED.
--- NOTE | 2017-03-26 14:04 | NUR ---
Rehab Note- Received call from Haley Wallace with [facility] with a denial for an inpatient acute rehab stay. Faxing denial letter with the appeals process contact for peer to peer. Called and notified CM. Perez Will deliver a copy of the denial letter. Thank you for this referral! Kat San RN Clinical Liaison, [facility] Rehab
--- NOTE | 2017-03-26 15:19 | NUR ---
ADMINISTERED MEDS ORDERED. PT DENIES ANY NEEDS AT THIS TIME. IN BED, WATCHING TV. CALL LIGHT IN REACH, NAD NOTED, WILL CONTINUE TO MONITOR.
--- NOTE | 2017-03-26 15:29 | NUR ---
Patient Name: AMANDA MEJIA Encounter No: [id number] : 1935 Primary Insurance: [employer] CHOICE PPO MCR ADVANT Anticipated DC Date: 03-25-2017 Planned Disposition: Home DCP follow-up note: CM SPOKE TO MATT OF [facility] WHO REPORTS RECEIVING DENIAL FROM PT'S INSURANCE FOR INPATIENT REHAB, SHE WILL BRING DENIAL TO CM SOON FAX IS RECEIVED. CM NOTIFIED SALONI CORDERO OF DENIAL AND NOTIFIED OF OPPORTUNITY FOR PEER TO PEER IF THE DOCTOR IS AGREEABLE. CM NOTIFIED PT AND PROVIDED IMPORTANT MESSAGE FROM MEDICARE. PT REPORTS HE PLANS TO GO HOME ALONE, HE IS WALKING OK AND FEELS STRONG ENOUGH TO GO HOME. PT HAS [facility] AND HAD HOME HEALTH COMING OUT FOR NURSING VISITS PRIOR TO THIS HOSPITALIZATION ARRANGED [facility]ROUGH [facility]. PT DOES NOT WANT TO GO TO OUTPATIENT THERAPY REPORTING HE IS NOT GOING TO DRIVE HIMSELF UNTIL HE IS BETTER. PT REPORTS HE WILL NEVER GO TO A CUSTODIAL FACILITY FOR ANY REASON. CM RECEIVED DENIAL, PLACED COPY IN CHART, PROVIDED PT A COPY; PT SIGNED FOR HIS COPY WHICH WAS ALSO SCANNED INTO ELECTRONIC CHART. PT PLANS TO DISCHARGE HOME, REPORTS ASSISTANCE OF SON AND DAUGHTER IN LAW WHO LIVE NEXT DOOR. FAMILY TO SUPERVISOR HOT DIP PLATING FOR DISCHARGE HOME. Aldo Tompkins, CASE MANAGEMENT
[2017-03-26 16:00] VITALS: BP 101/62
--- NOTE | 2017-03-26 17:30 | NUR ---
OT NOTE: PT COMPLETED BED MOB WITH SBA/SPV. PT COMPLETED ADL MOB WITH SBA/SPV. PT COMPLETED GROOMING AND HYGIENE WITH SBA. THANK YOU, MOISÉS ESTRADA/Mary Kay
--- NOTE | 2017-03-26 19:28 | NUR ---
PT ASLEEP. RESPIRATIONS EVEN AND UNLABORED. BED LOW AND CALL LIGHT IN REACH. WILL CPOC
--- NOTE | 2017-03-26 19:45 | NUR ---
PT RESTING IN BED RECEIVING A BREATHING TREATMENT. PT STATES HIS PAIN IS A 6/10 IN HIS RIGHT LEG, PAIN IS THROBBING. WILL BRING PRN PAIN MEDS WITH 2100 MEDS. PT DENIES ANY OTHER NEEDS. NO S/S OF DISTRESS. WILL CPOC
[2017-03-26 20:00] VITALS: BP 117/72
--- NOTE | 2017-03-26 21:46 | NUR ---
PT UP TO RESTROOM MODERATE BM. PT TO RESTROOM BY SELF. GAIT STEADY, NO COMPLICATIONS. PT GIVEN PRN PAIN MED FOR 6/10 PAIN IN RIGHT LEG. PT DENIES ANY OTHER NEEDS. NO S/S OF DISTRESS. WILL CPOC
[2017-03-27 04:00] VITALS: BP 108/46
[2017-03-27 05:16] LABS: BASOPHILS 0.2 % (0-2); EOSINOPHILS 2.2 % (0-7); HEMATOCRIT 33.4 % (42.0-54.0); HEMOGLOBIN 10.8 g/dL (13.5-17.5); IMMATURE GRANULOCYTES 2.1 % (0-5); LYMPHOCYTES 9.6 % (15-50); MCH 28.1 pg (26.0-34.0); MCHC 32.3 g/dL (31.0-37.0); MCV 86.8 fL (80.0-100.0); MEAN PLATELET VOLUME 11.4 fL (7.4-10.4); NEUTROPHILS 76.9 % (40-80); PLATELET COUNT 166 10x3/uL (130-400); RBC 3.85 10x6/uL (4.20-6.10); RDW 14.3 % (11.5-14.5); WBC 8.1 10x3/uL (4.8-10.8)
[2017-03-27 05:31] LABS: ANION GAP 11.3 mmol/L (8-16); CALCIUM 8.1 mg/dL (8.5-10.1); CARBON DIOXIDE 29.2 mmol/L (21.0-32.0); CREATININE - SERUM 1.7 mg/dL (0.6-1.3); POTASSIUM - SERUM 4.5 mmol/L (3.5-5.1)
--- NOTE | 2017-03-27 06:16 | NUR ---
PT STATES HE SLEPT GOOD LAST NIGHT. PT HAS NO S/S OF DISTRESS. FSBS IS 280 PT IS RECEIVING 6 UNITS. GAVE PT GRAMCRACKERS AND A MILK. BREAKFAST TRAY STILL NOT ARRIVING FOR A WHILE. PT DENIES ANY NEEDS. NO S/S OF DISTRESS. WILL CPOC
--- NOTE | 2017-03-27 07:30 | NUR ---
REPORT RECIVED. RR EVEN AND UNLABORED. PT REQUESTING PRN PAIN MEDS, WILL GIVE WITH MORNING MEDS. WILL CTM.
[2017-03-27 08:00] VITALS: BP 113/48
[2017-03-27 12:00] VITALS: BP 99/56
--- NOTE | 2017-03-27 13:36 | NUR ---
OT NOTE: PT DOING WELL. ABLE TO AMB WITHIN ROOM TO PERFORM TOILETING; ABLE TO PERFORM UE AND LE DRESSING WITH SPV. EDUCATED PT ON EXS HE CAN PERFORM IN ROOM TOLERATED. INDEP WITH FUNCTIONAL TRANSFERS
--- NOTE | 2017-03-27 13:46 | NUR ---
Nutrition Follow Up: Pt is eating 100% meal avg on a diabetic [facility] soft diet with nectar thick liquids. Wt gain noted. +BM 03/27/17. Labs reviewed. Meds noted including Lasix. Rec continue current diet per [employer] HUMAN RESOURCES ASSISTANT recs. RD following.
[2017-03-27 16:00] VITALS: BP 114/58
--- NOTE | 2017-03-27 17:54 | NUR ---
PT UP TO BATHROOM, RR EVEN AND UNLABORED, REQUESTING PAIN PILL. WILL GIVE ALONG WITH SUPPOSITORY. WILL GIVE REPORT ON PT CONDITION FOR THE DAY.
--- NOTE | 2017-03-27 18:30 | NUR ---
CONSENT OBTAINED FOR PROCEDURE TOMORROW. EXPLAINED THAT PT WILL BE NPO AFTER MIDNIGHT. WILL GIVE REPORT ON PT CONDTION.
[2017-03-27 18:47] LABS: INR 2.59 (0.85-1.17); PROTIME 27.9 SECONDS (11.6-15.0)
--- NOTE | 2017-03-28 01:24 | NUR ---
PT IN BED RESTING. EVEN AND UNLABORED RESPIRATIONS NOTED.
--- NOTE | 2017-03-28 03:41 | NUR ---
CALL LIGHT IN REACH, WILL CONTINUE WITH PLAN OF CARE.
[2017-03-28 04:00] VITALS: BP 190/52
[2017-03-28 05:48] LABS: BASOPHILS 0.2 % (0-2); HEMATOCRIT 32.4 % (42.0-54.0); HEMOGLOBIN 10.3 g/dL (13.5-17.5); IMMATURE GRANULOCYTES 1.1 % (0-5); LYMPHOCYTES 7.2 % (15-50); MCH 27.3 pg (26.0-34.0); MCHC 31.8 g/dL (31.0-37.0); MCV 85.9 fL (80.0-100.0); MEAN PLATELET VOLUME 12.2 fL (7.4-10.4); MONOCYTES 6.9 % (2-11); NEUTROPHILS 82.6 % (40-80); PLATELET COUNT 187 10x3/uL (130-400); RBC 3.77 10x6/uL (4.20-6.10); RDW 14.6 % (11.5-14.5)
[2017-03-28 06:12] LABS: INR 2.57 (0.85-1.17); PROTIME 27.7 SECONDS (11.6-15.0)
[2017-03-28 06:13] LABS: WBC 10.8 10x3/uL (4.8-10.8)
[2017-03-28 06:15] LABS: ANION GAP 15.4 mmol/L (8-16); CALCIUM 8.1 mg/dL (8.5-10.1); CARBON DIOXIDE 25.7 mmol/L (21.0-32.0); CREATININE - SERUM 2.1 mg/dL (0.6-1.3); POTASSIUM - SERUM 5.1 mmol/L (3.5-5.1)
--- NOTE | 2017-03-28 07:30 | NUR ---
REPORT RECEIVED. PT RESTING QUIELTY, AROUSES TO STIMULI. PT DIFFICULT TO AROUSE, BUT IS ALERT AND ORIENTED X4. PT QUESTIONING WHEN HE WILL BE GOING FOR HIS PROCEDURE TODAY. WILL CTM.
[2017-03-28 08:00] VITALS: BP 128/68
--- NOTE | 2017-03-28 11:00 | NUR ---
SURGERY CALLED TO PRE-OP PT. COMPLETED PRE-OP AND PRE-OP CHECKLIST. PT RESTING QUIELTY, TO BE TRANSFERRED TO OR.
--- NOTE | 2017-03-28 13:34 | NUR ---
NOTIFIED DR HORTON OF HYPOTENSION. FLUID BOLUS GIVEN
[2017-03-28 14:12] VITALS: BP 109/64
--- NOTE | 2017-03-28 14:14 | NUR ---
PT RECIEVED TO ROOM FROM PROCEDURE. RR EVEN AND UNLABORED, VSS. DRESSING TO RIGHT LOWER EXTREMITY CDI. PT DENIES NEEDS AT THIS TIME OTHER THAN WANTING TO EAT. PT PLACED ON FREQUENT VS. WILL CTM.
[2017-03-28 16:00] VITALS: BP 110/69
--- NOTE | 2017-03-28 18:18 | NUR ---
PT RESTING QUIELTY, BP HAS DROPPED SLIGHTLY SINCE COMING BACK FROM SURGERY. CURRENTLY 98/67. PT ALERT AND ORIENTED X4, DIFFICULT TO AROUSE AT TIMES. DRESSING CDI, WILL GIVE REPORT ON PT CONDTION FOR THE DAY.
--- NOTE | 2017-03-28 19:25 | NUR ---
PT RESTING IN ROOM. TALKING TO ME ABOUT PROCEDURE HE HAD TODAY. PT SITTING UP ON SIDE OF BED WITH NO ASSISTANCE. PT BED LOW AND CALL LIGHT IN REACH. PT DENIES ANY NEEDS. NO S/S OF DISTRESS. WILL CPOC
--- NOTE | 2017-03-28 23:46 | NUR ---
NORCO GIVEN FOR 6/10 PAIN. PT RECEIVING 6 UNITS FOR A FSBS OF 252. PT EATING A SNACK. GRAMCRACKERS AND PNT BUTTER. PT DENIES ANY OTHER NEEDS. NO S/S OF DISTRESS. WILL CPOC
--- NOTE | 2017-03-29 00:08 | NUR ---
PT ASLEEP. RESPIRATIONS EVEN AND UNLABORED. 16. PT BED LOW AND CALL LIGHT IN REACH. NO S/S OF DISTRESS. WILL CPOC
[2017-03-29 02:01] VITALS: BP 120/82
[2017-03-29 06:04] VITALS: BP 106/50
--- NOTE | 2017-03-29 06:20 | NUR ---
PT RESTING IN BED. UP TO BATHROOM WITH X1 ASSIST. PT DENIES ANY NEEDS. NO S/S OF DISTRESS. WILL CPOC
[2017-03-29 07:14] LABS: BASOPHILS 0.1 % (0-2); EOSINOPHILS 1.2 % (0-7); HEMATOCRIT 33.2 % (42.0-54.0); HEMOGLOBIN 10.4 g/dL (13.5-17.5); IMMATURE GRANULOCYTES 1.2 % (0-5); LYMPHOCYTES 11.1 % (15-50); MCH 27.4 pg (26.0-34.0); MCHC 31.3 g/dL (31.0-37.0); MCV 87.6 fL (80.0-100.0); MEAN PLATELET VOLUME 11.6 fL (7.4-10.4); NEUTROPHILS 78.4 % (40-80); PLATELET COUNT 168 10x3/uL (130-400); RBC 3.79 10x6/uL (4.20-6.10); RDW 14.8 % (11.5-14.5)
[2017-03-29 07:15] LABS: WBC 7.7 10x3/uL (4.8-10.8)
[2017-03-29 07:23] LABS: INR 2.48 (0.85-1.17); PROTIME 26.9 SECONDS (11.6-15.0)
[2017-03-29 07:29] LABS: ANION GAP 11.2 mmol/L (8-16); CALCIUM 8.1 mg/dL (8.5-10.1); CARBON DIOXIDE 29.3 mmol/L (21.0-32.0); CREATININE - SERUM 1.8 mg/dL (0.6-1.3); POTASSIUM - SERUM 4.5 mmol/L (3.5-5.1)
[2017-03-29 08:19] VITALS: BP 107/74
--- NOTE | 2017-03-29 09:31 | NUR ---
AM ROUNDS - ME IS IN BED AND AWAKE AT THIS TIME. YELLOW BAND ON. MONITOR SHOWED CAF, HR 71. IV TO LEFT FA, SL. BED AT LOWEST POSITION. CALL KIRK IN USE/REACH. SIDE RAILS UP X2. PT IS ON ROOM AIR. NO NEEDS AT THIS TIME. WILL CONTINUE TO MONITOR
[2017-03-29 11:46] VITALS: BP 115/58
--- NOTE | 2017-03-29 14:59 | NUR ---
PT IN BED ON CELL PHONE AT THIS TIME. PACKING DRESSING TO RIGHT LOWER LEG COMPLETE. PACKED WITH PACKING GAUZE, APPIED 4X4 AND SECURED WITH KERLIX. INCISION IS ABOUT 1.5CM X 0.2CM X 0.3CM. WILL CONTINUE TO MONITOR.
[2017-03-29 16:01] VITALS: BP 114/60
[2017-03-29 20:00] VITALS: BP 147/70
[2017-03-30] VITALS: BP 135/67
[2017-03-30 04:00] VITALS: BP 100/52
[2017-03-30 06:56] LABS: BASOPHILS 0.3 % (0-2); EOSINOPHILS 1.8 % (0-7); HEMATOCRIT 31.4 % (42.0-54.0); HEMOGLOBIN 9.7 g/dL (13.5-17.5); IMMATURE GRANULOCYTES 1.4 % (0-5); LYMPHOCYTES 14.1 % (15-50); MCHC 30.9 g/dL (31.0-37.0); MCV 87.5 fL (80.0-100.0); MEAN PLATELET VOLUME 11.6 fL (7.4-10.4); NEUTROPHILS 74.4 % (40-80); PLATELET COUNT 147 10x3/uL (130-400); RBC 3.59 10x6/uL (4.20-6.10); RDW 14.8 % (11.5-14.5); WBC 7.3 10x3/uL (4.8-10.8)
[2017-03-30 07:03] LABS: INR 2.23 (0.85-1.17); PROTIME 24.7 SECONDS (11.6-15.0)
[2017-03-30 07:09] LABS: ANION GAP 13.3 mmol/L (8-16); CALCIUM 8.3 mg/dL (8.5-10.1); CARBON DIOXIDE 26.6 mmol/L (21.0-32.0); CREATININE - SERUM 1.7 mg/dL (0.6-1.3); POTASSIUM - SERUM 4.9 mmol/L (3.5-5.1)
--- NOTE | 2017-03-30 07:26 | NUR ---
AM ROUNDS - PT IS AWAKE IN BED AT THIS TIME. MONITOR SHOWING A FLUT, HR 66. IV TO LEFT FA, SL. DRESSING TO RIGHT LEG, POST OP DAY 2. HARD OF HEARING. BED AT LOWEST POSITION. CALL KIRK IN USE/REACH. SIDE RAILS UP X2. NO NEEDS AT THIS TIME. WILL CONTINUE TO MONITOR.
[2017-03-30 07:58] VITALS: BP 131/59
[2017-03-30 11:14] VITALS: BP 99/51
--- NOTE | 2017-03-30 14:55 | NUR ---
PT IN CHAIR AND AWAKE AT THIS TIME. PIERCE TOLEDO, IN ROOM. PT'S FEET ARE ELEVATED. DRESSING ON RIGHT LEG IS INTACT AND NO BREAK THROUGH DRAINAGE TO BE SEEN. CALL KIRK IN USE/REACH. NO NEEDS AT THIS TIME. WILL CONITNUE TO MONITOR
[2017-03-30 16:18] VITALS: BP 140/90
[2017-03-30] MEDS ORDERED: BETAPACE 80 MG80 MG PO (17:46)
[2017-03-30] MEDS ORDERED: CARDIZEM60 MG PO (17:46)
--- NOTE | 2017-03-30 19:20 | NUR ---
RECIEVED SHIFT REPORT. PT IS LYING IN BED. ALERT AND ORIENTED AND ABLE TO VERBALIZE NEEDS. IV IS PATENT AND SALINE LOC AT THIS TIME. PT IS AMBULATORY BUT WAS INSTRUCTED TO CALL FOR ANY ASSISTANCE NEEDED. DRESSING TO RIGHT LEG C/D/I. PT STATES PAIN IS 4/10. NO NEEDS ARE VERBALIZED AT THIS TIME. WILL CONTINUE TO MONITOR. SIDE RAILS ARE UP X 2. BED IS IN LOWEST POSITION. CALL LIGHT IS WITHIN REACH.
[2017-03-30 20:00] VITALS: BP 144/67
--- NOTE | 2017-03-30 21:06 | NUR ---
SHIFT ASSESSMENT COMPLETED. NIGHT MEDS GIVEN WITH NO PROBLEMS. PT RECIEVED 10 UNITS INSULIN PER SLIDING SCALE FOR PFMZ=[id number]. NO NEEDS ARE VOICED. WILL MONITOR. SIDE RAILS X 2. BED LOW. CALL LIGHT IN REACH.
[2017-03-31] VITALS: BP 117/79
[2017-03-31 04:00] VITALS: BP 109/57
[2017-03-31 06:01] LABS: BASOPHILS 0.1 % (0-2); EOSINOPHILS 2.2 % (0-7); HEMATOCRIT 32.4 % (42.0-54.0); HEMOGLOBIN 10.2 g/dL (13.5-17.5); IMMATURE GRANULOCYTES 1.9 % (0-5); LYMPHOCYTES 14.5 % (15-50); MCH 27.4 pg (26.0-34.0); MCHC 31.5 g/dL (31.0-37.0); MCV 87.1 fL (80.0-100.0); MEAN PLATELET VOLUME 11.8 fL (7.4-10.4); MONOCYTES 9.2 % (2-11); NEUTROPHILS 72.1 % (40-80); PLATELET COUNT 161 10x3/uL (130-400); RBC 3.72 10x6/uL (4.20-6.10); RDW 14.6 % (11.5-14.5); WBC 6.9 10x3/uL (4.8-10.8)
[2017-03-31 06:16] LABS: INR 2.07 (0.85-1.17); PROTIME 23.4 SECONDS (11.6-15.0)
[2017-03-31 06:18] LABS: ANION GAP 12.6 mmol/L (8-16); CALCIUM 8.6 mg/dL (8.5-10.1); CARBON DIOXIDE 28.2 mmol/L (21.0-32.0); CREATININE - SERUM 1.7 mg/dL (0.6-1.3); POTASSIUM - SERUM 4.8 mmol/L (3.5-5.1)
--- NOTE | 2017-03-31 07:11 | NUR ---
AM ROUNDS- PT IN BED, REQUESTED A CUP OF COFFEE, WILL PROVIDED PT WITH A CUP OF COFFEE. PT A/O X4 RESP EVEN AND UNLABORED. PT DENIES ANY NEEDS AT THIS TIME. BED LOW AND WHEELS LOCKED, BEDSIDE RAILS X2, CALL LIGHT IN REACH, NAD NOTED, WILL CONTINUE TO MONITOR.
[2017-03-31 08:00] VITALS: BP 135/56
--- NOTE | 2017-03-31 08:43 | NUR ---
AM MEDS GIVEN AT THIS TIME. PT IN BED, DENIES ANY NEEDS AT THIS TIME. CALL LIGHT IN REACH, NAD NOTED, WILL CONTINUE TO MONITOR.
--- NOTE | 2017-03-31 11:33 | NUR ---
BLOOD SUGAR OF 291, 6UNITS OF HUMALOG GIVEN PER S/S. DAUGHTER IN LAW AT BEDSIDE, ASKED HER TO PICK A HOME HEALTH COMPANY THAT SHE WANTS PT TO USE. WILL NOTIFY TIFFANY Echavarria, GEOLOGICAL SPECIALIST THAT SHE HERE AT BEDSIDE.
[2017-03-31 12:00] VITALS: BP 112/64
--- NOTE | 2017-03-31 12:46 | NUR ---
Patient Name: AMANDA MEJIA Encounter No: [id number] : 1935 Primary Insurance: [employer] CHO[employer] PPO MCR [employer] Anticipated DC Date: 03-31-2017 Planned Disposition: Home WITH HOME HEALTH External Planned Provider: [facility] DCP follow-up note: CM RECEIVED HOME HEALTH AND DISCHARGE ORDER, MET WITH PT IN ROOM, DISCUSSED DISCHARGE NEEDS. PT REPORTS HE WANTS HOME HEALTH AND THAT HIS SON AND DAUGHTER IN LAW ARE TEACHABLE CAREGIVERS TO ASSIST WITH WOUND CARE. HE WANTS HIS DAUGHTER IN LAW TO CHOOSE THE HOME HEALTH PROVIDER; SHE WILL BE HERE IN A WHILE TO TRANSPORT PT HOME. IMPORTANT MESSAGE FROM MEDICARE PROVIDED AND DISCUSSED. PT'S DAUGHTER IN LAW ARRIVED, CM DISCUSSED ORDER FOR HOME HEALTH AND NEED FOR HOME HEALTH PROVIDER CHOICE. PT'S GRANDDAUGHTER REPORTS PT [facility], NOT [facility]. SHE CHOSE [facility], CHOICE SIGNED. SHE WILL BE TAKING PT HOME TODAY. PT DENIES FURTHER NEEDS AND REPORTS BEING READY TO LEAVE NOW. CM CALLED [facility], , SPOKE TO ANNI AND PROVIDED REFERRAL INFORMATION FOR ADMIT TOMORROW. CM FAXED REFERRAL TO [facility] AT [phone]. PT AND DAUGHTER IN LAW NOTIFIED. QUICK PRINT OPERATOR NURSE NOTIFIED. Aldo Tompkins, CASE MANAGEMENT
--- NOTE | 2017-03-31 12:49 | NUR ---
PROVIDED VERBAL AND WRITTEN DISCHARGE TEACHING TO PT AND DAUGHTER IN LAW. BOTH VERBALIZED UNDERSTANDING REGARDING TEACHING. D/C LT FA IV, TIP INTACT. REMOVED HEART MONITOR AND TOOK IT TO [employer] FLOOR COVERINGS INSTALLER. PT WILL NOTIFY WHEN READY FOR WHEELCHAIR, NAD NOTED, WILL CONTINUE TO MONITOR.
--- NOTE | 2017-03-31 13:20 | NUR ---
PT LEFT UNIT VIA WHEELCHAIR, ACCOMPANIED BY DAUGHTER IN LAW, NAD NOTED.
--- NOTE | 2017-04-04 12:36 | OP ---
PATIENT NAME: AMANDA MEJIA MEDICAL RECORD: [id number] :35 LOCATION:D.M2 D.2138 ADMISSION DATE:03/19/17 SURGEON: VEDA HORTON MD DATE OF OPERATION: 03/28/2017 PREOPERATIVE DIAGNOSES: 1. Right lower extremity infected hematoma. 2. Diabetes mellitus. 3. Coronary artery disease. 4. Congestive heart failure. 5. History of chronic Coumadin use. POSTOPERATIVE DIAGNOSES: 1. Right lower extremity infected hematoma. 2. Diabetes mellitus. 3. Coronary artery disease. 4. Congestive heart failure. 5. History of chronic Coumadin use. PROCEDURE: Incision and drainage of the right lower extremity. SURGEON: Veda Horton MD REPORT OF PROCEDURE: The patient's right lower extremity was prepped and draped in sterile fashion. A longitudinal incision was made over the area of fluctuance and there was a spillage of old bloody material. This did not have an odor and did not appear to be infected. The wound was inspected and cultures were taken times 2. We then removed all the clot and irrigated out the wound with peroxide and saline solution. We then packed it with half-inch packing strips and dressed it with 4 x 4's and Kerlix. COMPLICATIONS: None. CONDITION: Stable. ANESTHESIA: General endotracheal. BLOOD LOSS: Minimal. TRANSINT:[id number] Voice Confirmation ID: [id number] DOCUMENT ID: [id number] VEDA HORTON MD at 1236 CC: [id number] DICTATION DATE: 03/28/17 1317 SENIOR PROJECT COORDINATOR: 03/28/17 1405 DIS IN 03/31/17 [place] [id number]
== END 2017-03-31 13:23 | disposition home health service (06) | DRG 292 ==
LOC: D.ER 17:34 → D.M2 21:48 → OBSVTIME 21:48 → D.M2 21:48
PROVIDERS: Family Medicine; Nurse Practitioner Acute Care; Surgery; ADMIT Family Medicine
PROC: 0H9KXZZ Drainage of Right Lower Leg Skin, External Approach (ICD-10-PCS; principal; 2017-03-28 11:00)
DX: I50.21 Acute systolic (congestive) heart failure (principal); L02.415 Cutaneous abscess of right lower limb; I48.92 Unspecified atrial flutter; N17.9 Acute kidney failure, unspecified; I25.10 Atherosclerotic heart disease of native coronary artery without angina pectoris; Z79.01 Long term (current) use of anticoagulants; E11.65 Type 2 diabetes mellitus with hyperglycemia; W19.XXXA Unspecified fall, initial encounter; S00.93XA Contusion of unspecified part of head, initial encounter; S80.11XA Contusion of right lower leg, initial encounter; G47.00 Insomnia, unspecified; D64.9 Anemia, unspecified; E11.22 Type 2 diabetes mellitus with diabetic chronic kidney disease; N18.3 Chronic kidney disease, stage 3 (moderate); I08.1 Rheumatic disorders of both mitral and tricuspid valves; I87.8 Other specified disorders of veins; Z95.1 Presence of aortocoronary bypass graft; Z95.5 Presence of coronary angioplasty implant and graft; Z95.2 Presence of prosthetic heart valve

== ENCOUNTER 2017-04-21 10:54 | Outpatient (CLI) | payer MEDICARE ==
--- NOTE | ~2017-04-21 | HEMODYNAMI ---
PATIENT:AMANDA MEJIA MEDICAL RECORD: [id number] : 35 LOCATION:D.CAT ADMISSION DATE: 04/21/17 Generatedon:04/21/201714:21 Patient name: AMANDA MEJIA Patient #: [id number] SSN: : 1935 Date of study: 04/21/2017 Page: Of Hemodynamic Procedure Report Patient Data Patient Demographics Procedure consent was obtained First Name: AMANDA Gender: Male Last Name: ROBERTO : 1935 [facility] Initial: G Age: 81 year(s) Patient #: [id number] Race: Unknown Additional ID: [id number] Contact details [address]: [address] [place] [address] State: [place] City: [place] Zip code: [address] Past Medical History Allergies Allergen Reaction Date Comments Reported Other allergy 04/21/2017 Tramadol Admission Admission Data Admission Date: 04/21/2017 Admission Time: 10:54 Procedure Procedure Types Cath Procedure Diagnostic Procedure Cardioversion Procedure Description Procedure Date Procedure Date: 04/21/2017 Procedure Start Time: 14:05 Procedure End Time: 14:08 Procedure Staff Name Function Chaim Marie MD Performing Physician Violetta Doyle RT Scrub Tobin Ansari RN Nurse Maritza Bonilla RT Monitor Procedure Data Cath Procedure Fluoroscopy Diagnostic fluoroscopy Total fluoroscopy Time: 0 time: 0 min min Diagnostic fluoroscopy Total fluoroscopy dose: 0 dose: 0 mGy mGy Contrast Material Contrast Material Type Amount (ml) Isovue 300 0 Estimated blood loss: 0 ml Procedure Complications No complications Procedure Medications Medication Administration Route Dosage 0.9% NaCl I.V. 100 ml/hr Oxygen NC 3 l/min Refer to Anesthesia Notes for Sedation Medications Hemodynamics Rest Heart Rate: 66 (bpm) Snapshots Pre Cath Intra NCS Post Cath Vital Signs Time Heart Resp SPO2 etCO2 NIBP (mmHg) Rhythm Pain Sedation Rate (ipm) (%) (mmHg) Status Level (bpm) 13:59:33 57 19 97 38.8 132/83(111) NSR 0 (11) 10(A) , No pain 14:04:30 56 12 98 38.8 129/82(101) NSR 0 (11) 10(A) , No pain 14:08:38 44 11 92 0 99/59(69) NSR 0 (11) 8(A) , No pain 14:19:42 45 7 98 0 105/52(78) NSR 0 (11) 9(A) , No pain Medications Time Medication Route Dose Verified Delivered Reason Notes Effectiven ess by by 14:00:52 0.9% NaCl I.V. 100 Tobin Tobin Per ml/hr Elan Ansari physician RN RN 14:01:03 Oxygen NC 3 Tobin Tobin Per l/min Elan Ansari physician RN RN 14:04:34 Refer to Tobin Rudd for Anesthesia Elan Ansari sedation Notes for RN RN Sedation Medications Procedure Log Time Note 13:47:20 Diagnostic Cath Status : Elective 13:47:46 Violetta Doyle RT(R) sent for patient. Start room use. 13:47:47 Time tracking: Regular hours 13:47:51 Plan of Care:Hemodynamics will remain stable., Cardiac rhythm will remain stable., Comfort level will be maintained., Respiratory function will remain adequate., Patient/ family verbilizes understanding of procedure., Procedure tolerated without complication., Recovers from procedure without complications.. 13:57:29 Patient received from Pre/Post Procedure Room to [facility]3] 3 Alert and oriented. Tansferred to table in Supine position. 13:57:30 Warm blankets applied, and veena hugger turned on for patient comfort. 13:57:30 Correct patient and procedure confirmed by team. 13:57:32 Signed procedure consent form obtained from patient. 13:57:33 ECG and BP/O2 sat monitors applied to patient. 13:57:39 Vital chart was started 13:57:41 Baseline sample Acquired. 13:57:56 Rhythm: atrial flutter 13:57:58 Full Disclosure recording started 13:58:54 H&P Date Dictated: 04/14/2017 Within 30 days and on chart., H&P Addendum completed by physician on day of procedure. (MUST COMPLETE FOR ALL OUTPATIENTS). 13:58:56 Pre-procedure instructions explained to patient. 13:58:56 Pre-op teaching completed and patient verbalized understanding. 13:59:06 Family in waiting room. 13:59:08 Patient NPO since Midnight. 13:59:21 Patient allergic to Other allergyTramadol 13:59:23 Is the patient allergic to Iodine/contrast media? No. 13:59:24 Was the patient premedicated? No 14:00:52 0.9% NaCl 100 ml/hr I.V. was administered by Tobin Ansari RN; Per physician; 14:00:58 Is patient on blood thinner?Yes 14:01:01 ACC The patient was administered the following blood thiners within the last 24 hours: Coumadin 14:01:03 Oxygen 3 l/min NC was administered by Tobin Ansari RN; Per physician; 14:01:04 Patient diabetic? Yes. 14:01:11 If diabetic: On Metformin? No 14:01:13 Previous problem with sedation/anesthesia? No ? 14:01:14 Snore? Yes 14:01:15 Sleep apnea? Yes 14:01:38 Deviated septum? No 14:01:39 Opens mouth fully? Yes 14:01:39 Sticks out tongue? Yes 14:01:42 Airway obstruction? No ? 14:01:53 Dentures? Yes in tight 14:01:57 Pre procedure: right dorsailis pedis pulse 1+ Palpable, but thready & weak; easily obliterated 14:01:59 Pre procedure: left dorsailis pedis pulse 1+ Palpable, but thready & weak; easily obliterated 14:02:02 Patient pain scale 0/10 ?. 14:02:22 IV patent on arrival in left forearm with 0.9% NaCl at [facility]. 14:02:32 Lab results completed and on chart. 14:02:37 Mid Chest area was prepped with chlora-prep and draped in sterile fashion 14:02:38 Alarms reviewed by R. N. 14:02:39 Sharps counted by scrub and verified by R.N. 14:02:56 Physician paged 14:03:15 Physician arrived 14:03:16 --------ALL STOP TIME OUT------ 14:03:16 Final Timeout: patient, procedure, and site verified with staff and physician. All members of the team are in agreement. 14:03:20 Mid Chest site verified by team. 14:03:25 Physical assessment completed. ASA score P 2 - A patient with mild systemic disease as per Chaim Marie MD. 14:03:30 Sedation plan: TIVA Propofol 14:03:35 Quick combo pads placed on patients chest and back. 14:03:39 Defibrillator synced and charged to 100 Joules. 14:04:34 Refer to Anesthesia Notes for Sedation Medications was administered by Tobin Ansari RN; for sedation; 14:05:04 Phani Cedillo present and monitoring patient for TIVA. 14:05:06 Procedure started. 14:05:39 Shock delivered. 14:06:11 Patient cardioverted to sinus bradycardia. 14:07:05 Procedure ended.(Physican Out) 14:07:22 Fluoroscopy time 00.00 minutes. 14:07:25 Fluoroscopy dose: 0 mGy 14:07:25 Flurop Dose total: 0 14:07:29 Contrast amount:Isovue 300 0ml. 14:07:31 Sharps counted by scrub and verified by R.N. 14:07:33 Insertion/operative site no bleeding no hematoma. 14:07:38 Post procedure rhythm: sinus bradycardia 14:07:48 Estimated blood loss: 0 ml 14:07:50 Post procedure instruction explained to patient.Patient verbalizes understanding. 14:07:51 Patient needs reinforcement of post procedure teaching. 14:07:58 Procedure and supply charges have been captured, reviewed, submitted and are correct. 14:08:03 Procedure Complication : No complications 14:08:07 Vital chart was stopped 14:08:08 See physician's report for complete and final results. 14:08:10 Report given to Pre/Post Procedure Room. 14:08:13 Patient transfered to Pre/Post Procedure Room with Stretcher. 14:08:15 Procedure ended. 14:08:15 Full Disclosure recording stopped 14:08:17 End room use (Document Last) 14:09:45 Quick Combo opened to sterile field. 14:18:38 Vital chart was started 14:21:53 Vital chart was stopped Device Usage Item Manufacture Quantity Catalog Hospital Part Current Minimal Lot# / Name Number Charge Number Stock Stock Jolie perez# Code Xmybox 1 [id number] Combo Signature Audit [place] Stage Time Signature Unsigned Intra-Procedure 04/21/2017 Maritza Bonilla 2:21:49 PM RT(R) Signatures Monitor : Maritza Bonilla RT Signature : Date : Time : [place] [address] [place] [address]
[~2017-04-21 10:54] MED LIST: ACETAMINOPHEN325 MG PO; ATIVAN0.5 MG PO; BAYER CHEWABLE81 MG PO; BETAPACE 80 MG80 MG PO; CARDIZEM60 MG PO; COUMADIN2.5 MG PO; COUMADIN5 MG PO; CRESTOR20 MG PO; ENULOSE10 G/15 ML PO; EUCERIN CREAM120 GM TOPICAL; GAS-X80 MG PO; GAVILAX510 GM PO; LANTUS SOL100 UNIT/1 SC; LEXAPRO10 MG PO; LYRICA150 MG PO; MEPHYTON5 MG PO; METOPROLOL TAR100 M1 PO; OMEPRAZOLE20 M1 PO; OPTIVE SENSITI1 EACH EACH EYE; PRINIVIL20 MG PO; PROSCAR5 MG PO; TYLENOL W/CODEI1 TAB PO; VITAMIN D2000 UNIT PO
[2017-04-21 11:23] VITALS: BP 129/74; BMI 28.6
[2017-04-21 11:39] LABS: BASOPHILS 0.4 % (0-2); EOSINOPHILS 1.6 % (0-7); HEMATOCRIT 38.7 % (42.0-54.0); HEMOGLOBIN 11.9 g/dL (13.5-17.5); IMMATURE GRANULOCYTES 0.9 % (0-5); MCH 27.2 pg (26.0-34.0); MCHC 30.7 g/dL (31.0-37.0); MCV 88.4 fL (80.0-100.0); MEAN PLATELET VOLUME 11.4 fL (7.4-10.4); MONOCYTES 8.5 % (2-11); NEUTROPHILS 75.6 % (40-80); RBC 4.38 10x6/uL (4.20-6.10); WBC 8.2 10x3/uL (4.8-10.8)
[2017-04-21 11:42] LABS: PLATELET COUNT 120 10x3/uL (130-400)
[2017-04-21 11:52] LABS: ANION GAP 10.8 mmol/L (8-16); CALCIUM 8.7 mg/dL (8.5-10.1); CARBON DIOXIDE 29.6 mmol/L (21.0-32.0); CREATININE - SERUM 1.5 mg/dL (0.6-1.3); POTASSIUM - SERUM 4.4 mmol/L (3.5-5.1)
[2017-04-21 11:53] LABS: INR 2.89 (0.85-1.17); PROTIME 30.5 SECONDS (11.6-15.0)
--- NOTE | 2017-04-21 15:02 | NUR ---
1445 RESTING WITH EYES CLOSED. ROOM AIR WITH NO RESP DISTRESS. REMAINS SBRADY, RATE 52 WNO C/O CHEST PAIN. PULSES PALP X 4.
--- NOTE | 2017-04-21 15:29 | NUR ---
PIV REMOVED FROM LEFT FOREARM WITH BANDAID APPLIED. SITTING UP SIPPING SODA AND TALKING WITH FAMILY. UP TO BEDSIDE TO DRESS.
--- NOTE | 2017-04-21 15:33 | NUR ---
WHEELED OUT VIA WHEELCHAIR BY CATH TEAM
== END 2017-04-21 15:35 | disposition home or self-care (01) ==
LOC: D.CATH 10:54
PROVIDERS: Internal Medicine Cardiovascular Disease
DX: I48.91 Unspecified atrial fibrillation (principal); I25.10 Atherosclerotic heart disease of native coronary artery without angina pectoris; I10 Essential (primary) hypertension; I50.9 Heart failure, unspecified; E11.9 Type 2 diabetes mellitus without complications; K21.9 Gastro-esophageal reflux disease without esophagitis; G47.30 Sleep apnea, unspecified; Z95.5 Presence of coronary angioplasty implant and graft; Z01.812 Encounter for preprocedural laboratory examination

== ENCOUNTER 2017-05-26 14:50 | Emergency (ER) | payer MEDICARE, MEDICAID ==
[2017-05-26 15:32] LABS: ALBUMIN 3.8 g/dL (3.4-5.0); ANION GAP 9.4 mmol/L (8-16); BILIRUBIN - TOTAL 0.37 mg/dL (0.2-1.3); CALCIUM 8.5 mg/dL (8.5-10.1); CARBON DIOXIDE 31.1 mmol/L (21.0-32.0); CREATININE - SERUM 1.5 mg/dL (0.6-1.3); POTASSIUM - SERUM 4.5 mmol/L (3.5-5.1); PROTEIN - SERUM 7.4 g/dL (6.4-8.2)
[2017-05-26 15:42] LABS: BASOPHILS 0.3 % (0-2); EOSINOPHILS 1.8 % (0-7); HEMATOCRIT 39.1 % (42.0-54.0); HEMOGLOBIN 12.7 g/dL (13.5-17.5); IMMATURE GRANULOCYTES 0.5 % (0-5); MCH 26.6 pg (26.0-34.0); MCHC 32.5 g/dL (31.0-37.0); MCV 81.8 fL (80.0-100.0); MEAN PLATELET VOLUME 11.8 fL (7.4-10.4); MONOCYTES 8.1 % (2-11); NEUTROPHILS 73.3 % (40-80); PLATELET COUNT 125 10x3/uL (130-400); RBC 4.78 10x6/uL (4.20-6.10); RDW 14.7 % (11.5-14.5); WBC 7.7 10x3/uL (4.8-10.8)
[2017-05-26 15:46] LABS: INR 2.3 (0.85-1.17); PROTIME 24.7 SECONDS (11.6-15.0)
[2017-05-26 16:07] LABS: PRO BNP 814 pg/mL (0-450)
[2017-05-26 16:09] LABS: TROPONIN-I < 0.017 ng/mL (0.000-0.060)
== END 2017-05-26 17:25 | disposition home or self-care (01) ==
LOC: D.ER 14:50
PROVIDERS: Emergency Medicine; Nurse Practitioner Family
DX: I10 Essential (primary) hypertension (principal); F41.9 Anxiety disorder, unspecified; K21.9 Gastro-esophageal reflux disease without esophagitis

== ENCOUNTER → 2019-06-01 09:30 | Outpatient (CLI) | payer MEDICARE, MEDICAID ==
--- NOTE | 2019-06-03 10:40 | ST ---
PATIENT:AMANDA MEJIA MEDICAL RECORD: [id number] SEX: M LOCATION:[facility] ORDER #: ADMISSION DATE: 06/01/19 AGE OF PATIENT: 83 REFERRING PHYSICIAN: INTERPRETING PHYSICIAN: ALLY WELLS MD DATE OF SERVICE: 06/01/2019 Nuclear Stress Test INDICATIONS: Angina, coronary artery disease, status post coronary bypass graft surgery. He was exercised on standard Lexiscan protocol with 33 mCi of sestamibi injected at peak stress, 11 mCi used previously for rest images. FINDINGS: Gated SPECT reveals preserved ejection fraction at 61% with good wall motioning and thickening and brightening throughout all segments. SPECT Imaging: Cardiolite was used as myocardial perfusion agent. There is a fixed perfusion defect inferiorly compatible with previous inferior myocardial infarction; however, there is reversible ischemia laterally. This includes the basal, mid, apical, lateral segments. The degree of reversibility is mild to moderate. The amount of myocardium involved between the 2 defects inferolaterally is large suggestive of multivessel coronary artery disease. OVERALL IMPRESSION: This is an intermediate risk abnormal nuclear stress test, fixed perfusion defect inferiorly, reversible ischemia laterally, suggestive of multivessel coronary artery disease. TRANSINT:[id number] Voice Confirmation ID: [id number] DOCUMENT ID: [id number] ALLY WELLS MD at 1040 CC: [id number] DICTATION DATE: 06/02/19 165 IMPORT EXPORT MANAGER: 06/03/19 0517 DEP CLI 06/01/19 [place] [id number] [place] [id number]
== END | disposition home or self-care (01) ==
LOC: D.HCCARDIO 05-31 11:00 → D.HCCECHO 05-31 11:00
PROVIDERS: ATTEND Internal Medicine Cardiovascular Disease
DX: I35.0 Nonrheumatic aortic (valve) stenosis (principal); I25.10 Atherosclerotic heart disease of native coronary artery without angina pectoris

== ENCOUNTER 2019-07-05 11:24 | Outpatient (CLI) | payer MEDICARE ==
[~2019-07-05] VITALS: Ht 180.3 cm; Wt 88.6 kg
--- NOTE | ~2019-07-05 | HEMODYNAMI ---
PATIENT:AMANDA MEJIA MEDICAL RECORD: [id number] : 35 LOCATION:[facility] ADMISSION DATE: 07/05/19 Generatedon:07/05/201914:03 Patient name: AMANDA MEJIA Patient #: [id number] SSN: : 1935 Date of study: 07/05/2019 Page: Of Hemodynamic Procedure Report Patient Data Patient Demographics Procedure consent was obtained First Name: AMANDA Gender: Male Last Name: ROBERTO : 1935 [facility] Initial: Charleen Age: 83 year(s) Patient #: [id number] Race: Unknown Additional ID: [id number] Contact details [address]: [address] [place] [address] State: [place] City: [place] Zip code: [address] Past Medical History History of disease Date Diagnosis Comments CAD Valvular heart disease Allergies Allergen Reaction Date Comments Reported Other allergy 04/21/2017 Tramadol Admission Admission Data Admission Date: 07/05/2019 Admission Time: 11:24 Arrival Date: 07/05/2019 Arrival Time: 0:00 Height (in.): 70.87 BSA: 2.09 (m2) Height (cm.): 180 BMI: 27.47 (kg/m2) Weight (lbs.): 196.21 Weight (kg.): 89 Current Diagnosis Diagnosis Description Stable angina Lab Results Lab Result Date: 07/05/2019 Lab Result Time: 0:00 Biochemistry Name Units Result Min Max BUN mg/dl 26 --(----)-* 7 18 Creatinine mg/dl 1.8 --(----)-* 0.6 1.3 eGFR ml/min 38 *-(----)-- 90 120 NONAFRICAN CBC Name Units Result Min Max Hematocrit % 38.4 *-(----)-- 42 54 Hemoglobin g/dl 13.3 -*(----)-- 13.5 17.5 Procedure Procedure Types Cath Procedure Diagnostic Procedure LHC LHC w/Coronaries w/Grafts Sedation Charges Moderate Sedation up to 45 minutes PCI Procedure AMI/SVG/WIRE TWISTING MACHINE OPERATOR PTCA or Stent SVG-BMS/GERARD Initial Hemochron ACT Test Procedure Description Procedure Date Procedure Date: 07/05/2019 Procedure Start Time: 13:06 Procedure End Time: 14:00 Procedure Staff Name Function Chaim Marie MD Performing Physician Edwina Briones RT Monitor Gemma Henriquez RT Scrub Tobin Ansari RN Nurse Procedure Data Cath Procedure Fluoroscopy Diagnostic fluoroscopy Total fluoroscopy Time: time: 11.8 min 11.8 min Diagnostic fluoroscopy Total fluoroscopy dose: dose: 1764 mGy 1764 mGy Contrast Material Contrast Material Type Amount (ml) Isovue 300 169 Entry Location Entry Primary Successful Side Size Upsize Upsize Entry Closure Succes sful Closure Location (Fr) 1 (Fr) 2 (Fr) Remarks Device Remarks Femoral Right 5 Fr 6 Fr Exoseal artery Short Estimated blood loss: 10 ml Diagnostic catheters Device Type Used For End Catheter Placement MULTIPACK JL 4.0 5Fr Procedure catheter DIAGNOSTIC AR MOD 5Fr Procedure Catheter ([id number]) MULTIPACK 3DRC 5Fr Procedure catheter MULTIPACK Pigtail 5 Fr Procedure catheter DIAGNOSTIC IM 5Fr Procedure catheter ([id number]) Procedure Complications No complications Procedure Medications Medication Administration Route Dosage 0.9% NaCl I.V. 100 ml/hr Oxygen etCO2 Nasal cannula 2 l/min Heparin Flush Bag added to field 2 bags (1000units/500ml NS) Lidocaine 2% added to field 20 Versed I.V. 1 mg Fentanyl I.V. 50 mcg Nitroglycerin IC/IA I.C. 100 mcg Heparin Bolus I.V. 8000 units Versed I.V. 0.5 mg Fentanyl I.V. 25 mcg Plavix P.O. 600 mg Hemodynamics Rest BSA: 2.09 (m2) HGB: 13.3 (g/dl) O2 Consumption: Estimated: 230.31 (ml/min) O2 Co nsumption indexed: Estimated:110.2 (ml/min/m) Heart Rate: 61 (bpm) Snapshots Pre Cath Intra NCS Post Cath Vital Signs Time Heart Resp SPO2 etCO2 NIBP (mmHg) Rhythm Pain Sedation Rate (ipm) (%) (mmHg) Status Level (bpm) 12:50:12 59 15 97 0 129/68(90) NSR 0 (11) 10(A) , No pain 12:54:20 57 15 97 49.1 119/73(85) NSR 0 (11) 10(A) , No pain 12:58:24 61 15 98 43.8 119/73(105) NSR 0 (11) 10(A) , No pain 13:02:27 61 17 97 45.3 127/73(95) NSR 0 (11) 10(A) , No pain 13:06:33 61 15 97 43.8 120/76(85) NSR 0 (11) 10(A) , No pain 13:10:37 61 17 97 43.1 131/72(96) NSR 0 (11) 10(A) , No pain 13:14:45 65 16 97 47.6 126/75(96) NSR 0 (11) 9(A) , No pain 13:18:49 65 17 97 48.3 135/80(102) NSR 0 (11) 9(A) , No pain 13:22:56 64 16 97 49.8 131/78(107) NSR 0 (11) 9(A) , No pain 13:27:04 66 17 98 0 124/75(95) NSR 0 (11) 9(A) , No pain 13:31:10 65 17 97 47.5 128/75(105) NSR 0 (11) 9(A) , No pain 13:35:16 62 16 97 49 132/75(98) NSR 0 (11) 9(A) , No pain 13:39:28 66 17 97 0 107/61(82) NSR 0 (11) 10(A) , No pain 13:43:31 60 18 97 46.8 100/62(73) NSR 0 (11) 9(A) , No pain 13:47:31 61 16 97 51.3 94/60(86) NSR 0 (11) 9(A) , No pain 13:51:29 60 16 97 50.5 108/64(87) NSR 0 (11) 9(A) , No pain 13:55:28 60 17 97 47.5 103/70(90) NSR 0 (11) 10(A) , No pain 13:59:28 60 6 97 48.3 113/70(83) NSR 0 (11) 9(A) , No pain Medications Time Medication Route Dose Verified Delivered Reason Notes Effectiveness by by 12:53:40 0.9% NaCl I.V. 100 Tobin Tobin Per physician ml/hr Elan Ansari RN RN 12:53:50 Oxygen etCO2 2 Tobin Tobin for low 02 sats Nasal l/min Elan Ansari cannula RN RN 12:54:01 Heparin Flush added 2 Tobin Tobin used for Bag to bags Elan Ansari procedure (1000units/500ml field RN RN NS) 12:54:11 Lidocaine 2% added 20ml Tobin Tobin for local to vial Lorigan Elan anesthetic field RN RN 13:03:58 Versed I.V. 1 mg Tobin Tobin for sedation Elan Ansari RN RN 13:04:07 Fentanyl I.V. 50 Tobin Tobin for sedation mcg Elan Ansari RN RN 13:37:52 Nitroglycerin I.C. 100 Tobin Chaim for IC/IA mcg Elan Marie MD vasodilation RN 13:38:38 Heparin Bolus I.V. 8,000 Tobin Tobin for units Elan Ansari anticoagulation RN RN 13:42:29 Versed I.V. 0.5 Tobin Tobin for sedation mg Elan Ansari RN RN 13:42:35 Fentanyl I.V. 25 Tobin Tobin for sedation mcg Elan Ansari RN RN 13:56:05 Plavix P.O. 600 Tobin Tobin for mg Elan Ansari antiplatelet RN RN therapy Procedure Log Time Note 12:31:14 Informed consent obtained and on chart 12:31:46 Procedure Status Elective Heart Cath (OP). 12:31:47 Time tracking: Regular hours (M-F 7:00 - 5:00) 12:31:50 Plan of Care:Hemodynamics will remain stable., Cardiac rhythm will remain stable., Comfort level will be maintained., Respiratory function will remain adequate., Patient/ family verbilizes understanding of procedure., Procedure tolerated without complication., Recovers from procedure without complications.. 12:34:11 H&P Date Dictated: 07/05/2019 Within 30 days and on chart., H&P Addendum completed by physician on day of procedure. (MUST COMPLETE FOR ALL OUTPATIENTS). 12:34:44 Tobin Ansari RN sent for patient. Start room use. 12:35:47 Patient Weight : 196.21 lbs 12:35:50 Patient Height : 70.87 inches 12:35:54 Arrival Date: 07/05/2019 12:00:00 AM 12:36:36 Current Diagnosis : Stable angina 12:38:33 Stress Test: yes; abnormal MULITVESSEL 12:38:41 Patient received from Pre/Post Procedure Room to CCL 2 Alert and oriented. Tansferred to table in Supine position. 12:38:42 Warm blankets applied, and veena hugger turned on for patient comfort. 12:38:42 Correct patient and procedure confirmed by team. 12:38:42 ECG and BP/O2 sat monitors applied to patient. 12:41:13 Lab Result : BUN 26 mg/dl 12:41:13 Lab Result : eGFR NONAFRICAN 38 ml/min 12:41:13 Lab Result : Creatinine 1.8 mg/dl 12:41:13 Lab Result : Hemoglobin 13.3 g/dl 12:41:13 Lab Result : Hematocrit 38.4 % 12:41:18 Lab results completed and on chart. 12:48:58 Vital chart was started 12:49:00 Baseline sample Acquired. 12:49:05 Rhythm: sinus bradycardia 12:49:06 Full Disclosure recording started 12:49:06 Pre-procedure instructions explained to patient. 12:49:07 Pre-op teaching completed and patient verbalized understanding. 12:49:08 Family in patients room. 12:49:10 Patient NPO since Midnight. 12:49:20 Is the patient allergic to Iodine/contrast media? No. 12:49:22 Is patient on blood thinner?Yes 12:50:16 LAST DOSE OF COUMADIN FRIDAY. 12:50:24 Patient diabetic? Yes. 12:50:26 If diabetic: On Metformin? Unknown 12:50:28 Previous problem with sedation/anesthesia? No ? 12:50:29 Snore? Yes 12:50:30 Sleep apnea? No 12:50:31 Deviated septum? No 12:50:32 Opens mouth fully? Yes 12:50:33 Sticks out tongue? Yes 12:50:37 Airway obstruction? No ? 12:50:41 Dentures? Yes TOP IN 12:50:45 Pre procedure: right dorsailis pedis pulse 2+ Normal; easily identifiable; not easily obliterated 12:50:49 Patient pain scale 0/10 ?. 12:51:10 IV patent on arrival in left hand with 0.9% NaCl at [facility]. 12:51:16 Right groin area was prepped with chlora-prep and draped in sterile fashion 12:51:17 Alarms reviewed by R. N. 12:51:17 Sharps counted by scrub and verified by R.N. 12:52:34 Risk of Mortality: 7 12:52:38 Risk of blood transfusion: 3 12:52:42 Risk of MANJINDER: 3.8 12:52:49 Use device set Femoral Dx 12:52:55 ACIST Syringe (46028) opened to sterile field. 12:52:55 Bag Decanter (2002S) opened to sterile field. 12:52:56 ACIST Hand Control (46819) opened to sterile field. 12:52:57 ACIST Manifold (53071) opened to sterile field. 12:52:58 Tegaderm 4 x 4 (1626W) opened to sterile field. 12:53:00 Medline Cath Pack ([id number]) opened to sterile field. 12:53:01 DIAGNOSTIC Multipack 5Fr catheter set (PR2862) opened to sterile field. 12:53:02 SHEATH 5FR Eland (KVC815) opened to sterile field. 12:53:02 EMERALD Guide Wire (327-429) opened to sterile field. 12:53:40 0.9% NaCl 100 ml/hr I.V. was administered by Tobin Ansari RN; Per physician; Verbal order read back and verified. 12:53:50 Oxygen 2 l/min etCO2 Nasal cannula was administered by Tobin Ansari RN; for low 02 sats; Verbal order read back and verified. 12:54:01 Heparin Flush Bag (1000units/500ml NS) 2 bags added to field was administered by Tobin Ansari RN; used for procedure; Verbal order read back and verified. 12:54:11 Lidocaine 2% 20ml vial added to field was administered by Tobin Ansari RN; for local anesthetic; Verbal order read back and verified. 12:58:54 Zero performed for pressure channel P1 12:59:44 --------ALL STOP TIME OUT------ 12:59:45 Final Timeout: patient, procedure, and site verified with staff and physician. All members of the team are in agreement. 12:59:46 Right groin site verified by team. 12:59:54 Fire Safety Assessment: A--An alcohol-based skin anteseptic being used preoperatively., C--Open oxygen or nitrous oxide is being used., D--An ESU, laser, or fiber-optic light is being used. 12:59:58 Physical assessment completed. ASA score P 2 - A patient with mild systemic disease as per Chaim Marie MD. 13:00:11 3b) 30-44 Moderately reduced kidney function. 13:00:14 Maximum allowable contrast dose (3.7 X eGFR X 0.75)105 ml. 13:00:23 Sedation plan: IV Moderate Sedation Medication:Versed, Fentanyl 13:03:58 Versed 1 mg I.V. was administered by Tobin Ansari RN; for sedation; Verbal order read back and verified. 13:04:07 Fentanyl 50 mcg I.V. was administered by Tobin Ansari RN; for sedation; Verbal order read back and verified. 13:05:32 Procedure started. 13:06:13 Local anesthetic to right femoral artery with Lidocaine 2% by Chaim Marie MD.INITIAL ACCESS ONLY 13:10:25 A 5 Fr sheath was inserted into the Right Femoral artery 13:11:18 A MULTIPACK JL 4.0 5Fr catheter was advanced over the wire and used for Procedure. 13:12:50 LCA angiography performed. 13:13:04 Catheter exchanged over wire. 13:14:09 A DIAGNOSTIC AR MOD 5Fr Catheter ([id number]) was advanced over the wire and used for Procedure. 13:15:13 SVG to LAD angiography performed. 13:15:53 SVG to Diag angiography performed. 13:18:37 SVG to RCA occluded. 13:19:49 Catheter exchanged over wire. 13:20:39 A MULTIPACK 3DRC 5Fr catheter was advanced over the wire and used for Procedure. 13:22:16 RCA angiography performed. 13:22:22 Catheter exchanged over wire. 13:23:44 A MULTIPACK Pigtail 5 Fr catheter was advanced over the wire and used for Procedure. 13:23:51 Aortic Root visualized 13:24:30 Catheter exchanged over wire. 13:25:28 A DIAGNOSTIC IM 5Fr catheter ([id number]) was advanced over the wire and used for Procedure. 13:28:05 VELASCO angiography performed. 13:28:14 Catheter exchanged over wire. 13:32:24 SHEATH 6FR Eland (TTO968) opened to sterile field. 13:32:25 INFLATOR Merit BasixCompak (HU6812) opened to sterile field. 13:32:25 BMW 300cm Straight [place] 2 wire (8305527) opened to sterile field. 13:32:40 Sheath upsized to a 6 Fr Short. 13:33:34 TUBING High Pressure Extension Tubing (Frank) (FK3156S) opened to sterile field. 13:33:34 GUIDE 6FR AR 1.0 catheter (AH6BC19) opened to sterile field. 13:33:59 Proceeding to intervention. 13:34:07 Pre PCI Site: Vein Graft Diag1 has 80% stenosis. 13:34:12 6 Fr AR 1 guide catheter was inserted over the wire 13:37:52 Nitroglycerin IC/IA 100 mcg I.C. was administered by Chaim Marie MD; for vasodilation; Verbal order read back and verified. 13:38:38 Heparin Bolus 8,000 units I.V. was administered by Tobin Ansari RN; for anticoagulation; Verbal order read back and verified. 13:41:14 BMW 300 wire advanced. 13:41:44 Wire advanced across lesion. 13:42:29 Versed 0.5 mg I.V. was administered by Tobin Ansari RN; for sedation; Verbal order read back and verified. 13:42:35 Fentanyl 25 mcg I.V. was administered by Tobin Ansari RN; for sedation; Verbal order read back and verified. 13:44:12 Place stent Inflation Number: 1 A COBRA RX 2.5 X 12 Stent was prepped and advanced across the Aorta Left -> 1st Diag . The stent was deployed at 14 CARLA for 0:00 (min:sec) . 13:44:24 Stent catheter was removed intact over wire. 13:49:07 Place stent Inflation Number: 2 A COBRA RX 2.5 X 24 Stent was prepped and advanced across the Aorta Left -> 1st Diag . The stent was deployed at 14 CARLA for 0:00 (min:sec) . 13:49:35 Stent catheter was removed intact over wire. 13:49:57 Wire removed. 13:49:58 Guide catheter removed. 13:51:12 EXOSEAL 6Fr (EX600) opened to sterile field. 13:51:50 Sheath removed intact; hemostasis achieved with Exoseal to the Right Femoral artery. 13:51:52 Procedure ended.(Physican Out) 13:52:44 Contrast amount:Isovue 300 169ml. 13:52:49 Maximum allowable dose exceeded? Yes. 13:52:58 Fluoroscopy time 11.80 minutes. 13:53:02 Fluoroscopy dose: 1764 mGy 13:53:02 Flurop Dose total: 1764 13:53:11 Dose Area Product 78925 mGy/cm. 13:53:39 Sharps counted by scrub and verified by R.N. 13:53:42 Post-op/insertion site Right Femoral artery dressed using a 4 x 4 and Tegaderm. 13:54:11 Post-procedure physical assessment completed. ASA score P 2 - A patient with mild systemic disease as per Chaim Marie MD. 13:55:09 Post procedure rhythm: unchanged. 13:55:12 Estimated blood loss: 10 ml 13:55:13 Post procedure instruction explained to patient.Patient verbalizes understanding. 13:55:13 Patient needs reinforcement of post procedure teaching. 13:56:05 Plavix 600 mg P.O. was administered by Tobin Ansari RN; for antiplatelet therapy; Verbal order read back and verified. 13:56:11 Procedure type changed to Cath procedure, Diagnostic procedure, C, C w/Coronaries w/Grafts, Sedation Charges, Moderate Sedation up to 45 minutes, PCI procedure, AMI/SVG/WIRE TWISTING MACHINE OPERATOR PTCA or Stent, SVG-BMS/GERARD Initial, Hemochron ACT Test 13:57:21 Procedure and supply charges have been captured, reviewed, submitted and are correct. 13:57:32 Procedure Complication : No complications 13:57:36 [facility] Findings: MVD- PCI performed (see procedure note) 13:57:38 Operative report dictated upon procedure completion. 13:57:38 See physician's report for complete and final results. 13:58:52 ACT drawn and resulted at 338 seconds. (normal therapeutic range 180-240 seconds). 14:00:53 Vital chart was stopped 14:00:56 Report given to Pre/Post Procedure Room. 14:00:58 Patient transfered to Pre/Post Procedure Room with Bed. 14:00:59 Procedure ended. 14:00:59 Full Disclosure recording stopped 14:01:10 ACC-PCI Only Patient was given prescriptions, or instructed by Chaim Marie MD to start/continue the following medications upon discharge: Plavix 14:01:11 End room use (Document Last) 14:02:20 End room use (Document Last) 14:02:35 End room use (Document Last) Intervention Summary Intervention Notes Time ActionType Lesion and Equipment Action# Pressure Duration Attributes Used 13:44:12 Place stent Aorta Left COBRA RX 1 14 00:00 -> 1st Diag 2.5 X 12 Stent 13:49:07 [address] stent Aorta Left COBRA RX 2 14 00:00 -> 1st Diag 2.5 X 24 Stent Device Usage Item Name Manufacture Quantity Catalog Hospital Part Current Minimal Lot# / Number Charge Number Stock Stock Serial# Code ACIST Syringe Acist 1 10194 875423 122331 642966 20 (99814) Medical Systems Inc Bag Decanter Microtek 1 2001S 065616 78516 822494 5 (2001S) Medical Inc. ACIST Hand Acist 1 92736 521811 411801 423080 5 Control Medical (33423) Systems Inc ACIST Manifold Acist 1 67473 366899 584736 947300 5 (52365) Medical Systems Inc Tegaderm 4 x 4 3M 1 1626W 789947 572698 988292 5 (1626W) Medline Cath Medline 1 [id number] 529291 11321 739159 5 Pack ([id number]) DIAGNOSTIC Cardinal 1 ZF4386 469864 22274 014213 30 Multipack 5Fr Health catheter set (VT7990) SHEATH 5FR Terumo 1 BNX065 225398 837395 693009 5 Eland (TPV243) EMERALD Guide Cardinal 1 502-455 518595 424892 042137 5 Wire (502-455) Health MULTIPACK JL Cardinal 1 482133 5 4.0 5Fr Health catheter DIAGNOSTIC AR Cardinal 1 673931Y 279455 573055 161303 15 MOD 5Fr Health Catheter (417372S) MULTIPACK 3DRC Cardinal 1 143964 5 5Fr catheter Health MULTIPACK Cardinal 1 880636 5 Pigtail 5 Fr Health catheter DIAGNOSTIC IM Cardinal 1 094447G 964817 658710 626281 5 5Fr catheter Health (931842R) SHEATH 6FR Terumo 1 FBO103 089002 486631 415665 40 Eland (XCL088) INFLATOR Merit Merit 1 HH8029 805318 001953 918647 15 [facility] Medical (BE8791) BMW 300cm Meyer 1 2625969 115315 590809 440068 5 Straight Vascular [place] 2 wire (6009947) TUBING High Merit 1 [id number] 786016 10055 819131 10 Pressure Medical Extension Tubing (Frank) (GA6657K) GUIDE 6FR AR Medtronic 1 [id number] 044203 36011 165981 1 1.0 catheter (GU9EQ33) COBRA RX 2.5 X Celonova 1 405560 [id number] [id number] 6 4 [id number] 12 stent Biosciences () COBRA RX 2.5 X Celonova 1 214021 [id number] 1281247 2 [id number] 24 stent Biosciences () EXOSEAL 6Fr Cardinal 1 EX600 772698 465655 514707 10 (EX600) Health Signature Audit [place] Stage Time Signature Unsigned Intra-Procedure 07/05/2019 Edwina Briones 2:02:20 PM RT(R) Intra-Procedure 07/05/2019 Tobin 2:02:36 PM Elan GREENBERG Intra-Procedure 07/05/2019 Chaim Marie MD 2:03:20 PM Signatures Performing Physician : Signature : Chaim Marie MD Date : Time : Monitor : Edwina Briones Signature : RT Date : Time : Nurse : Tobin Ansari Signature : RN Date : Time : [address] [address]
[2019-07-05] MEDS ORDERED: ALBUTEROL SULF8.5 GM INH (11:45)
[2019-07-05] MEDS ORDERED: VOLTAREN100 GM TOPICAL (11:46)
[2019-07-05] MEDS ORDERED: FLOVENT DISKU100 MCG INH (11:49)
[2019-07-05] MEDS ORDERED: RANITIDINE HCL150 M1 PO (11:52)
[2019-07-05] MEDS ORDERED: LASIX20 MG PO (11:54)
[2019-07-05 12:12] VITALS: BP 134/71; Ht 180.3 cm; Wt 88.6 kg
[2019-07-05 12:17] LABS: BASOPHILS 0.5 % (0-2); EOSINOPHILS 2.8 % (0-7); HEMATOCRIT 38.4 % (42.0-54.0); HEMOGLOBIN 13.3 g/dL (13.5-17.5); IMMATURE GRANULOCYTES 1.5 % (0-5); LYMPHOCYTES 26.1 % (15-50); MCH 29.6 pg (26.0-34.0); MCHC 34.6 g/dL (31.0-37.0); MCV 85.3 fL (80.0-100.0); NEUTROPHILS 60.1 % (40-80); PLATELET COUNT 133 10x3/uL (130-400); RDW 13.2 % (11.5-14.5); WBC 7.5 10x3/uL (4.8-10.8)
[2019-07-05 12:31] LABS: ALT (SGPT) 27 U/L (10-68); CALCIUM 8.8 mg/dL (8.5-10.1); CARBON DIOXIDE 32.4 mmol/L (21.0-32.0); CHLORIDE - SERUM 103 mmol/L (98-107); CHOL - HDL RATIO 6.4 ratio (2.3-4.9); CHOLESTEROL, TOTAL 191 mg/dL (0-200); CREATININE - SERUM 1.8 mg/dL (0.6-1.3); HDL CHOLESTEROL 30 mg/dL (32-96); POTASSIUM - SERUM 4.5 mmol/L (3.5-5.1); SODIUM 139 mmol/L (136-145); UREA NITROGEN 36 mg/dL (7-18); eGFR NON AFRICAN AMERICAN 38 mL/min (90-120)
[2019-07-05 12:37] LABS: CALC OSMOLALITY 289 mosm/kg (275-300); GLUCOSE 172 mg/dL (74-106); TRIGLYCERIDE 562 mg/dL (30-200)
[2019-07-05 12:59] LABS: APTT 28.4 SECONDS (22.8-39.4); INR 1.15 (0.85-1.17); PROTIME 14.6 SECONDS (11.6-15.0)
[2019-07-05] MEDS ORDERED: PLAVIX75 MG PO (14:14)
--- NOTE | 2019-07-05 14:20 | NUR ---
REC TO ROOM VIA STRETCHER FROM MANAGER OF NETWORK. MONITORING INITIATED. VSS HR NSR 63, RR 12, SAT 97%2LNC, BP 114/63. R GROIN W TEGADERM AND 4X4, CDI AND SOFT, NO S/S BLEEDING/HEMATOMA. PPP RLE. INSTRUCTED PT AND DTR IN LAW ON KEEPING HEAD ON PILLOW AND RLE STRAIGHT,STILL AND RELAXED, VERBALIZED UNDERSTANDING.
--- NOTE | 2019-07-05 14:51 | NUR ---
R GROIN REMAINS SOFT, CDI. NO S/S BLEEDING OR HEMATOMA. PPP. DTR IN LAW AT BEDSIDE. SB 59, BP 115/67, SAT 97% ON 2LNC, RR 8. ROUSES TO VERBAL, OTHERWISE IS RESTING W EYES CLOSED.
--- NOTE | 2019-07-05 15:31 | NUR ---
R GROIN REMAINS SOFT, CDI. PPP. NO S/S BLEEDING/HEMATOMA. HR 64, NSR, BP 109/64, SAT 97%ON 2LNC. DTR IN LAW AT BEDSIDE.
--- NOTE | 2019-07-05 16:05 | NUR ---
VOIDED 500 ML CLEAR YELLOW URINE INTO URINAL. R GROIN REMAINS SOFT, CDI, NO S/S BLEEDING/HEMATOMA. PPP. REITERATED NEED TO KEEP RLE STRAIGHT, STILL AND RELAXED. VERBALIZES UNDERSTANDING.
--- NOTE | 2019-07-05 16:33 | NUR ---
R GROIN SOFT, CDI. NO S/S BLEEDING/HEMATOMA. PPP. HR62,NSR. BP 126/73. SAT 97% ON 2LNC.
--- NOTE | 2019-07-05 17:04 | NUR ---
R GROIN REMAINS SOFT, CDI, NO S/S BLEEDING/HEMATOMA. RAISED HOB TO PT COMFORT, PROVIDED SANDWICH, WATER. HR NSR 63, BP 110/60, SAT 97% ON RA. DTR IN LAW AT BEDSIDE.
--- NOTE | 2019-07-05 17:15 | NUR ---
CALLED TO ROOM FOR PT VOMITING. EMESIS BAG PROVIDED, PT SPITTING UP THICK CLEAR MUCUS AND UNDIGESTED BITS OF SANDWICH AND GRAPES HE JUST ATE. DENIES NAUSEA, STATES "THINK IT IS BC OF HOW I AM SITTING". DESPITE BEING PULLED TO TOP OF BED BEFORE RAISING HOB, PT IS NOW SLID DOWN AND BENT MORE IN THE BELLY AREA. AFTER SPITTING UP FOOD AND REPOSITIONING UP IN BED, PT REQUESTING JELLO. PROVIDED W INSTRUCTION TO GO SLOWLY WITH IT.
--- NOTE | 2019-07-05 17:33 | NUR ---
PT FINISHING SECOND JELLO. FINISHED SANDWICH AND GRAPES. STATES "I FEEL GOOD NOW". R GROIN REMAINS CDI, SOFT, NO S/S BLEEDING/HEMATOMA. PPP.
--- NOTE | 2019-07-05 17:50 | NUR ---
IV REMOVED TIP INTACT, MONITORING DC. R GROIN REMAINS SOFT, CDI. NO S/S BLEEDING/HEMATOMA. DISCHARGE TEACHING REVIEWED WITH PT AND DTR IN LAW.
--- NOTE | 2019-07-05 18:00 | NUR ---
ASSISTED PT TO DRESS. R GROIN SOFT, CDI, NO S/S BLEEDING/HEMATOMA.
--- NOTE | 2019-07-05 18:15 | NUR ---
DC HOME VIA WHEELCHAIR TO PRIVATE CAR W DTR IN LAW, PT HAS ALL BELONGINGS
== END 2019-07-05 18:15 | disposition home or self-care (01) ==
LOC: D.CATH 11:24
PROVIDERS: ATTEND Internal Medicine Cardiovascular Disease
DX: I25.119 Atherosclerotic heart disease of native coronary artery with unspecified angina pectoris (principal); E78.5 Hyperlipidemia, unspecified; I48.91 Unspecified atrial fibrillation; E11.9 Type 2 diabetes mellitus without complications; Z95.4 Presence of other heart-valve replacement; R94.39 Abnormal result of other cardiovascular function study

== ENCOUNTER 2019-07-21 15:37 | Inpatient (IN) | payer MEDICARE ==
[~2019-07-21] VITALS: Ht 181.6 cm; Wt 100.0 kg
[~2019-07-21 15:37] MED LIST changes: +ALBUTEROL SULF8.5 GM INH; +AUGMENTIN 875-11 TAB PO; +BACTRIM 400-801 TAB PO; +BUSPAR5 MG PO; +CYCLOSPORINE EYE; +FLORAJEN3 CAPS460 MG PO; +FLOVENT DISKU100 MCG INH; +LASIX20 MG PO; +LISINOPRIL40 MG PO; +LOVENOX40 MG/0.4 SC; +PLAVIX75 MG PO; +RANITIDINE HCL150 M1 PO; +VOLTAREN100 GM TOPICAL
--- NOTE | 2019-07-21 16:57 | NUR ---
TRAUMA BAND [id number]
[2019-07-21 17:05] LABS: BASOPHILS 0.2 % (0-2); EOSINOPHILS 2.3 % (0-7); HEMATOCRIT 36.2 % (42.0-54.0); HEMOGLOBIN 12.2 g/dL (13.5-17.5); IMMATURE GRANULOCYTES 1.8 % (0-5); LYMPHOCYTES 18.6 % (15-50); MCH 29.1 pg (26.0-34.0); MCHC 33.7 g/dL (31.0-37.0); MCV 86.4 fL (80.0-100.0); MEAN PLATELET VOLUME 10.4 fL (7.4-10.4); MONOCYTES 10.3 % (2-11); NEUTROPHILS 66.8 % (40-80); PLATELET COUNT 169 10x3/uL (130-400); RBC 4.19 10x6/uL (4.20-6.10); RDW 13.3 % (11.5-14.5); WBC 8.7 10x3/uL (4.8-10.8)
[2019-07-21 17:14] LABS: INR 2.27 (0.85-1.17); PROTIME 24.7 SECONDS (11.6-15.0)
[2019-07-21 17:20] LABS: ANION GAP 10.8 mmol/L (8-16); CALCIUM 8.3 mg/dL (8.5-10.1); CARBON DIOXIDE 29.1 mmol/L (21.0-32.0); POTASSIUM - SERUM 3.9 mmol/L (3.5-5.1)
[2019-07-21 17:28] LABS: ALBUMIN 3.4 g/dL (3.4-5.0); BILIRUBIN - TOTAL 0.34 mg/dL (0.2-1.3); PROTEIN - SERUM 7.2 g/dL (6.4-8.2)
--- NOTE | 2019-07-21 18:44 | NUR ---
1700 PATIENT SIGNED VIDEO CONSENT, PLACED ON VIDEO WITH [facility] DR. GILL. DR GARCIA AT BEDSIDE, EVALUATION GIVEN BY DR. GILL.
--- NOTE | 2019-07-21 19:05 | NUR ---
DOUBLE ABX OINTMENT PLACED ON RIGHT TOES, VASOLINE GAUZE PLACED BETWEEN TOES AND COVERED ALL WOUNDS, TOES DRESSED WITH KERLEX.
[2019-07-21 20:00] VITALS: BP 147/69
[2019-07-21 23:40] VITALS: BP 147/69; BMI 30.3
[2019-07-22] VITALS: BP 158/68
[2019-07-22 04:00] VITALS: BP 168/79
[2019-07-22 06:55] LABS: BASOPHILS 0.3 % (0-2); EOSINOPHILS 2.3 % (0-7); HEMATOCRIT 36.1 % (42.0-54.0); IMMATURE GRANULOCYTES 0.9 % (0-5); LYMPHOCYTES 18.7 % (15-50); MCH 28.8 pg (26.0-34.0); MCHC 33.2 g/dL (31.0-37.0); MCV 86.8 fL (80.0-100.0); MEAN PLATELET VOLUME 11.3 fL (7.4-10.4); MONOCYTES 7.9 % (2-11); NEUTROPHILS 69.9 % (40-80); PLATELET COUNT 163 10x3/uL (130-400); RBC 4.16 10x6/uL (4.20-6.10); RDW 13.4 % (11.5-14.5); WBC 7.4 10x3/uL (4.8-10.8)
[2019-07-22 06:57] LABS: ANION GAP 10.8 mmol/L (8-16); CALCIUM 8.2 mg/dL (8.5-10.1); CARBON DIOXIDE 27.3 mmol/L (21.0-32.0); CREATININE - SERUM 1.6 mg/dL (0.6-1.3); MAGNESIUM - SERUM 2.1 mg/dL (1.8-2.4); POTASSIUM - SERUM 4.1 mmol/L (3.5-5.1)
[2019-07-22 08:00] VITALS: BP 115/89
[2019-07-22 12:00] VITALS: BP 130/57
[2019-07-22 14:19] VITALS: Ht 181.6 cm; Wt 100.0 kg
[2019-07-22 14:34] LABS: % SATURATION 15 % (15-55); IRON 49 ug/dl (35-150); TOTAL IRON BIND CAPACITY 308 ug/dl (260-445); UNSAT IRON BIND CAPACITY 259 ug/dl (150-375)
[2019-07-22 15:57] VITALS: BP 140/68
--- NOTE | 2019-07-22 19:16 | NUR ---
PT ALERT AND AWAKE MAKING MANY NEEDS KNOW SOME REQUEST CONTRARY TO MD ORDERS AND NOT DONE BED LOW AND LOCKED AND CALL LIGHT IN REACH
[2019-07-22 20:00] VITALS: BP 126/78
[2019-07-23] VITALS: BP 159/74
--- NOTE | 2019-07-23 01:15 | NUR ---
HAVE SET UP AND ASKED PT FOR URINE BUT PT HAS NOT PROVIDED
[2019-07-23 02:20] LABS: APPEARANCE CLEAR (CLEAR); BILIRUBIN NEGATIVE (NEGATIVE); COLOR YELLOW (YELLOW); GLUCOSE 500 mg/dL (NEGATIVE); KETONE NEGATIVE (NEGATIVE); NITRITE NEGATIVE (NEGATIVE); PROTEIN NEGATIVE (NEGATIVE); UROBILINOGEN NORMAL (NORMAL)
[2019-07-23 04:00] VITALS: BP 159/79
--- NOTE | 2019-07-23 04:23 | NUR ---
PT AT REST WITH EYES CLOSED RESP EVEN AND UNLABORED
--- NOTE | 2019-07-23 05:19 | NUR ---
I have reviewed this patient and I concur with the Shift Assessment completed by the Licensed Practical Nurse today this shift.
[2019-07-23 06:40] LABS: BASOPHILS 0.3 % (0-2); EOSINOPHILS 2.5 % (0-7); HEMATOCRIT 33.8 % (42.0-54.0); HEMOGLOBIN 11.1 g/dL (13.5-17.5); IMMATURE GRANULOCYTES 0.7 % (0-5); LYMPHOCYTES 18.7 % (15-50); MCH 28.8 pg (26.0-34.0); MCHC 32.8 g/dL (31.0-37.0); MCV 87.6 fL (80.0-100.0); MEAN PLATELET VOLUME 11.4 fL (7.4-10.4); MONOCYTES 8.1 % (2-11); NEUTROPHILS 69.7 % (40-80); PLATELET COUNT 162 10x3/uL (130-400); RBC 3.86 10x6/uL (4.20-6.10); RDW 13.4 % (11.5-14.5); WBC 6.8 10x3/uL (4.8-10.8)
[2019-07-23 07:02] LABS: APTT 57.9 SECONDS (22.8-39.4)
[2019-07-23 07:04] LABS: INR 2.79 (0.85-1.17)
[2019-07-23 07:11] LABS: ANION GAP 11.5 mmol/L (8-16); CREATININE - SERUM 1.5 mg/dL (0.6-1.3); PHOSPHOROUS 3.8 mg/dL (2.5-4.9); POTASSIUM - SERUM 4.5 mmol/L (3.5-5.1)
[2019-07-23 07:49] VITALS: BP 145/56
--- NOTE | 2019-07-23 10:46 | NUR ---
DRESSING CHANGED TO RIGHT ARM, PACKED WITH SALINE PLAIN PACKING, 4X4 AND KERLIX. DRESSING CHANGED TO RIGHT FOOT, TRIPLE ANTIBIOTIC/ADAPTIC/4X4/KERLIX. FOOT IS RED WITH SKIN SLOUGHED OFF. SMALL AMT DRAINAGE THROUGH PRIOR DRESSING.
[2019-07-23] MEDS ORDERED: DOXYCYCLINE HY100 M2 PO (10:53)
[2019-07-23 11:06] VITALS: BP 144/81
--- NOTE | 2019-07-23 14:53 | MORECARE ---
CASE MANAGEMENT DISCHARGE SUMMARY PATIENT: AMANDA MEJIA UNIT: [id number] ADM DATE: 07/21/19 AGE: 83 : 35 SEX: M ROOM/BED: D.2130 AUTHOR: LUIS RODAS PHYSICIAN: REFERRING PHYSICIAN: SHIRLEY PALMER MD DATE OF SERVICE: 07/23/19 Discharge Plan Patient Name: AMANDA MEJIA [facility] [facility] 1935 Planned Disposition: Home with Home Health Anticipated Discharge Date: 07/23/19 Discharge Date: Expected LOS: 2 Initial Reviewer: [email or web address] Initial Review Date: 07/21/2019 Generated: 07/23/19 3:53 pm DCPIA - Discharge Planning Initial Assessment Updated by [email or web address]: Aldo Tompkins on 07/23/19 2:51 pm * Is the patient Alert and Oriented? Yes * How many steps to enter\exit or inside your home? NONE * PCP SHAGUFTA VILLANUEVA [facility] AT [place] * Pharmacy [facility] * Preadmission Environment Home with Family * ADLs Independent * Equipment Bedside Commode Cane Rolling Walker Shower Chair Walker Wheelchair * Other Equipment NO MEDICAL EQUIPMENT PROVIDER PREFERENCE * List name and contact numbers for known caregivers / representatives who currently or will assist patient after discharge: LILLIAN MEJIA, * Verbal permission to speak to the caregivers and representatives has been obtained from the patient. N/A * Community resources currently utilized Home Health * Please name any agencies selected above. [facility] * Additional services required to return to the preadmission environment? No * Can the patient safely return to the preadmission environment? Yes * Has this patient been hospitalized within the prior 30 days at any hospital? Yes Patient Name: AMANDA MEJIA Page 76344 at 1453 All edits/amendments must be made on the electronic document DICTATION DATE: 07/23/191452 FARMWORKER: DAISY 07/23/19 145 RPT#: [id number] DC DATE: STATUS: ADM IN [facility] [address] [place] [address] END OF REPORT
--- NOTE | 2019-07-23 15:05 | MORECARE ---
CASE MANAGEMENT DISCHARGE SUMMARY PATIENT: AMANDA MEJIA UNIT: [id number] ADM DATE: 07/21/19 AGE: 83 : 35 SEX: M ROOM/BED: D.2130 AUTHOR: CLARK,DOC PHYSICIAN: REFERRING PHYSICIAN: SHIRLEY PALMER MD DATE OF SERVICE: 07/23/19 Discharge Plan Patient Name: AMANAD MEJIA Facility: [facility]:[place] : 1935 Planned Disposition: Home with Home Health Anticipated Discharge Date: 07/23/19 Discharge Date: Expected LOS: 2 Initial Reviewer: [email or web address] Initial Review Date: 07/21/2019 Generated: 07/23/19 4:05 pm DCPIA - Discharge Planning Initial Assessment Updated by [email or web address]: Aldo Tompkins on 07/23/19 2:51 pm * Is the patient Alert and Oriented? Yes * How many steps to enter\exit or inside your home? NONE * PCP SHAGUFTA VILLANUEVA [facility] AT [place] * Pharmacy [facility] * Preadmission Environment Home with Family * ADLs Independent * Equipment Bedside Commode Cane Rolling Walker Shower Chair Walker Wheelchair * Other Equipment NO MEDICAL EQUIPMENT PROVIDER PREFERENCE * List name and contact numbers for known caregivers / representatives who currently or will assist patient after discharge: LILLIAN MEJIA, * Verbal permission to speak to the caregivers and representatives has been obtained from the patient. N/A * Community resources currently utilized Home Health * Please name any agencies selected above. [facility] * Additional services required to return to the preadmission environment? No * Can the patient safely return to the preadmission environment? Yes * Has this patient been hospitalized within the prior 30 days at any hospital? Yes External Providers External Provider: [facility] Next Contact Date: 07/23/2019 Service Request Date: Service Type: Resolution: Reviewer: Comments: Coverage Notice Reviewer: [email or web address] - Aldo Tompkins Notice Issued Date-Time: 07/23/2019 13:55 Notice Type: Patient Choice Letter Notice Delivered To: Patient Relationship to Patient: Manufacturing Supervisor Name: Delivery Method: HAND - Hand Delivered Tiffani Days: Prior Verbal Notification: Recipient Understood Notice: Yes Recipient Signature: Yes Med Rec Note Co-signed by Attending: Coverage Notice Comment: [facility] Last DP export: 07/23/19 1:53 p Patient Name: AMANDA MEJIA Page 73064 at 1505 All edits/amendments must be made on the electronic document DICTATION DATE: 07/23/19 1505 WATER ANALYST: DAISY 07/23/19 1505 RPT#: [id number] DC DATE: STATUS: ADM IN [facility] [address] [place] [address] END OF REPORT
--- NOTE | 2019-07-23 15:13 | MORECARE ---
CASE MANAGEMENT DISCHARGE SUMMARY PATIENT: AMANDA MEJIA UNIT: [id number] ADM DATE: 07/21/19 AGE: 83 : 35 SEX: M ROOM/BED: D.2130 AUTHOR: CLARK,DOC PHYSICIAN: REFERRING PHYSICIAN: SHIRLEY PALMER MD DATE OF SERVICE: 07/23/19 Discharge Plan Patient Name: AMANDA MEJIA Facility: [facility]:[place] : 1935 Planned Disposition: Home with Home Health Anticipated Discharge Date: 07/23/19 Discharge Date: Expected LOS: 2 Initial Reviewer: [email or web address] Initial Review Date: 07/21/2019 Generated: 07/23/19 4:13 pm Comments DCP- Discharge Planning Updated by [email or web address]: Aldo Tompkins on 07/23/19 2:[address] Patient Name: AMANDA MEJIA Admission Status: ER Accout number: [id number] Admission Date: 07-21-2019 : 1935 Admission Diagnosis: Attending: SHIRLEY PALMER Current LOS: 2 Anticipated DC Date: 07-23-2019 Planned Disposition: Home with Home Health Primary Insurance: [facility] MEDICARE SOLUTIONS PLANNED EXTERNAL PROVIDER: [facility] Discharge Planning Comments: CM RECEIVED DISCHARGE AND HOME HEALTH ORDERS. CM MET WITH PT IN ROOM TO DISCUSS DISCHARGE PLANNING AND NEEDS. PT REPORTS LIVING AT HOME INDEPENDENTLY WITH ALONE, PT HASBEDSIDE COMMODE, CANE, ROLLING WALKER, SHOWER CHAIR, WALKER AND WHEELCHAIR. PT HAS NO MEDICAL EQUIPMENT PROVIDER PREFERENCE. PT HAS [facility] ALREAD[facility]. CHOICE COMPLETED. CM DISCUSSED AVAILABILITY OF HOME HEALTH, REHAB SERVICES AND MEDICAL EQUIPMENT. PT DENIES DISCHARGE NEEDS, REPORTS HIS DAUGHTER WILL PICK HIM UP FOR DISCHARGE HOME TODAY AFTER THEY CLOSE DOWN THE [place] AT 6PM. CM CALLED [facility], , SPOKE TO NEL WHO TOOK REFERRAL INFORMATION AND WILL PLACE PT BACK ON SCHEDULE FOR RESUMPTION OF HOME HEALTH CARE. CM FAXED DISCHARGE INFORMATION TO [facility] AT [phone]. SCREW MACHINE OPERATOR SWISS TYPE NURSE NOTIFIED. Manager Photography: Aldo Tompkins DCPIA - Discharge Planning Initial Assessment Updated by [email or web address]: Aldo Tompkins on 07/23/19 2:51 pm * Is the patient Alert and Oriented? Yes * How many steps to enter\exit or inside your home? NONE * PCP [facility] [place] * [facility] * Preadmission Environment Home with Family * ADLs Independent * Equipment Bedside Commode Cane Rolling Walker Shower Chair Walker Wheelchair * Other Equipment NO MEDICAL EQUIPMENT PROVIDER PREFERENCE * List name and contact numbers for known caregivers / representatives who currently or will assist patient after discharge: LILLIAN MEJIA, * Verbal permission to speak to the caregivers and representatives has been obtained from the patient. N/A * Community resources currently utilized Home Health * Please name any agencies selected above. [facility] * Additional services required to return to the preadmission environment? No * Can the patient safely return to the preadmission environment? Yes * Has this patient been hospitalized within the prior 30 days at any hospital? Yes Coverage Notice Reviewer: [id number] Anne Tompkins Notice Issued Date-Time: 07/23/2019 13:55 Notice Type: Patient Choice Letter Notice Delivered To: Patient Relationship to Patient: X Ray Tech Name: Delivery Method: HAND - Hand Delivered Tiffani Days: Prior Verbal Notification: Recipient Understood Notice: Yes Recipient Signature: Yes Med Rec Note Co-signed by Attending: Coverage Notice Comment: [facility] Last DP export: 07/23/19 2:05 p Patient Name: AMANDA MEJIA Page [id number] at 1513 All edits/amendments must be made on the electronic document DICTATION DATE: 07/23/19 151 BOTTLE BLOWER: DAISY 07/23/191512 RPT#: [id number] DC DATE: STATUS: ADM IN [facility] [address] [place] [address] END OF REPORT
--- NOTE | 2019-07-23 20:09 | NUR ---
ESCORTED PT OUT VIA W/C, FAMILY MEMBER PRESENT.
== END 2019-07-23 20:12 | disposition home health service (06) | DRG 596 ==
LOC: D.ER 15:37 → D.M2 17:47 → D.SDCHOLD 07-22 14:38 → D.M2 07-22 14:38
PROVIDERS: Family Medicine; ADMIT Internal Medicine Nephrology; ATTEND Internal Medicine Nephrology
DX: L51.2 Toxic epidermal necrolysis [Lyell] (principal); L03.113 Cellulitis of right upper limb; N17.9 Acute kidney failure, unspecified; T36.8X5A Adverse effect of other systemic antibiotics, initial encounter; B95.62 Methicillin resistant Staphylococcus aureus infection as the cause of diseases classified elsewhere; E11.22 Type 2 diabetes mellitus with diabetic chronic kidney disease; I12.9 Hypertensive chronic kidney disease with stage 1 through stage 4 chronic kidney disease, or unspecified chronic kidney disease; N18.9 Chronic kidney disease, unspecified; Z79.4 Long term (current) use of insulin; K21.9 Gastro-esophageal reflux disease without esophagitis; N40.0 Benign prostatic hyperplasia without lower urinary tract symptoms; I25.10 Atherosclerotic heart disease of native coronary artery without angina pectoris; D63.1 Anemia in chronic kidney disease

== ENCOUNTER → 2019-10-11 17:28 | Outpatient (CLI) | payer MEDICARE ==
[2019-07-22 14:19] VITALS: BMI 30.3
[~2019-10-11 17:28] MED LIST changes: +DOXYCYCLINE HY100 M2 PO
[2019-10-11 17:38] LABS: BASOPHILS 0.5 % (0-2); EOSINOPHILS 2.8 % (0-7); HEMATOCRIT 34.1 % (42.0-54.0); HEMOGLOBIN 10.9 g/dL (13.5-17.5); IMMATURE GRANULOCYTES 1.9 % (0-5); LYMPHOCYTES 28.5 % (15-50); MCH 27.3 pg (26.0-34.0); MCV 85.3 fL (80.0-100.0); MEAN PLATELET VOLUME 11.9 fL (7.4-10.4); MONOCYTES 9.7 % (2-11); NEUTROPHILS 56.6 % (40-80); PLATELET COUNT 142 10x3/uL (130-400); WBC 5.8 10x3/uL (4.8-10.8)
[2019-10-11 17:52] LABS: INR 2.5 (0.85-1.17); PROTIME 26.6 SECONDS (11.6-15.0)
== END | disposition home or self-care (01) ==
LOC: D.LABREF 17:28
DX: Z79.01 Long term (current) use of anticoagulants (principal); L51.3 Stevens-Johnson syndrome-toxic epidermal necrolysis overlap syndrome